=== PATIENT | male | born 1935 | race Caucasian/White ===

== ENCOUNTER → 2019-11-10 14:22 | Outpatient (CLI) | payer MEDICARE, SELFPAY ==
--- NOTE | 2019-11-10 | DI.RAD.S_ITS ---
PROCEDURE: XR CHEST 2V INDICATIONS: COUGH TECHNIQUE: 2 views of the chest were acquired. COMPARISON: [facility], , CHEST 2 VIEW, 11/23/2008, 15:49. FINDINGS: Surgical changes and devices: None. Lungs and pleura: Lungs are clear. No pleural effusions or pneumothorax. Mediastinum: The cardiac contours are within normal limits. The aorta demonstrates calcification and tortuosity. Bones and chest wall: Age-appropriate bony degenerative changes are seen. No suspicious bony abnormalities. Soft tissues appear unremarkable. IMPRESSION: Clear lungs, without infiltrates seen. If there is clinical concern for a developing pulmonary process, a short-term followup chest series (with PA and lateral views, performed in deep inspiration) is suggested for further evaluation. Dictated by: Kimo Cintron M.D. on 11/10/2019 at 13:50 Approved by: Kimo Cintron M.D. on 11/10/2019 at 13:50
== END ==
PROVIDERS: PCP Physician Assistant; Referring Provider Internal Medicine; Visit Provider Internal Medicine
DX: R05 Cough (principal)
CPT/HCPCS: 71046

== ENCOUNTER → 2020-04-06 14:18 | Outpatient (CLI) | payer MEDICARE, SELFPAY | PROVIDERS: PCP Physician Assistant; Visit Provider Specialist | DX: N39.0 Urinary tract infection, site not specified (principal); N36.42 Intrinsic sphincter deficiency (ISD); R31.9 Hematuria, unspecified; R32 Unspecified urinary incontinence; N52.35 Erectile dysfunction following radiation therapy; Z85.51 Personal history of malignant neoplasm of bladder; Z87.440 Personal history of urinary (tract) infections | CPT/HCPCS: 51798; 52000; 81002; 87077; 87086; 87186; 99213 ==

== ENCOUNTER → 2020-05-09 18:49 | Outpatient (ROUT) | payer MEDICARE, SELFPAY ==
[2020-05-09 20:17] LABS: BUN Creatinine Ratio 19.8 (6-22); Blood Urea Nitrogen 38 mg/dL (9-20); Calcium 10.2 mg/dL (8.4-10.2); Carbon Dioxide 28 mmol/L (22-32); Chloride 103 mmol/L (98-107); Estimated Glomerular Filt Rate 33.5 mL/min (>60); Glucose 87 mg/dL (80-110); HEMOLYSIS < 15 (0-50); Potassium 4.5 mmol/L (3.4-5.1); Sodium 139 mmol/L (137-145)
== END ==
PROVIDERS: PCP Physician Assistant; Visit Provider Internal Medicine
DX: N39.41 Urge incontinence (principal); N18.9 Chronic kidney disease, unspecified
CPT/HCPCS: 80048

== ENCOUNTER → 2020-05-11 18:41 | Outpatient (ROUT) | payer MEDICARE, SELFPAY | PROVIDERS: PCP Physician Assistant; Visit Provider Internal Medicine | DX: N39.41 Urge incontinence (principal) | CPT/HCPCS: 87077; 87086; 87186 ==

== ENCOUNTER → 2020-08-11 09:51 | Outpatient (CLI) | payer MEDICARE, SELFPAY ==
[2020-08-11 10:41] LABS: COVID19 -Nasal RAPID Negative (Negative)
== END ==
PROVIDERS: PCP Physician Assistant; Referring Provider Internal Medicine; Visit Provider Internal Medicine
DX: Z20.822 Contact with and (suspected) exposure to COVID-19 (principal)
CPT/HCPCS: 87635; C9803

== ENCOUNTER → 2020-10-12 11:08 | Outpatient (CLI) | payer MEDICARE, SELFPAY ==
--- NOTE | 2020-10-12 11:15 | DI.CT.S_ITS ---
PROCEDURE: CT CHEST W CON INDICATIONS: Hemoplysis, Cough TECHNIQUE: After the administration of intravenous contrast, 5 mm thick sections acquired from the pulmonary apices to the posterior costophrenic angles. 1 mm axial lung, 5 mm thick coronal and sagittal reformats and 7 mm axial MIP were acquired. For radiation dose reduction, the following was used: automated exposure control, adjustment of mA and/or kV according to patient size. COMPARISON: [facility], CR, CHEST 2VW, 08/04/2014, 10:38. [facility], CR, XR CHEST 2V, 11/10/2019, 13:33. FINDINGS: Image quality: Excellent. Lungs and pleura: No acute air space opacities. Lung volumes are large which may reflect a prior smoking history. Prior chest plain film has shown flattening of the diaphragms consistent with COPD. No endobronchial mass or evidence of early manifestation of lung carcinoma is found. A source of cough and hemoptysis is not seen. There is a small degree of lung parenchyma and adjacent pleural scarring at each apex, right greater than left. No pleural effusions or pneumothorax. Central and peripheral airways are patent and normal in caliber. Mediastinum: Heart size is normal. No pericardial effusion. No mediastinal or hilar adenopathy by size criteria. Thoracic aorta and central pulmonary arteries are normal in size. Esophagus is normal in caliber. No hiatal hernia. Bones and chest wall: No suspicious bony lesions. No vertebral body compression fractures. No axillary or supraclavicular adenopathy by size criteria. Thyroid gland is normal . Abdomen: Visualized upper abdominal solid organs appear normal. Upper abdominal bowel loops are normal in caliber. IMPRESSION: Suspect COPD, given large lung volumes and flattening of the diaphragms on the lateral view from chest plain films previously obtained. No pneumonia or neoplasm is found. Dictated by: Donald Mora M.D. on 10/12/2020 at 12:55 Approved by: Donald Mora M.D. on 10/12/2020 at 12:59
== END ==
PROVIDERS: PCP Physician Assistant; Referring Provider Physician Assistant; Visit Provider Physician Assistant
DX: R04.2 Hemoptysis (principal)
CPT/HCPCS: 71260

== ENCOUNTER → 2021-04-20 14:08 | Outpatient (CLI) | payer MEDICARE, SELFPAY | PROVIDERS: PCP Physician Assistant; Referring Provider Specialist; Visit Provider Specialist | DX: N52.35 Erectile dysfunction following radiation therapy (principal); N36.42 Intrinsic sphincter deficiency (ISD); R32 Unspecified urinary incontinence; N30.40 Irradiation cystitis without hematuria; Z85.51 Personal history of malignant neoplasm of bladder; Z87.440 Personal history of urinary (tract) infections | CPT/HCPCS: 51798; 52000; 81002; 87077; 87086; 87186; 99214 ==

== ENCOUNTER → 2021-06-13 16:16 | Outpatient (CLI) | payer MEDICARE, SELFPAY ==
[2021-06-13 17:07] LABS: Appearance Urine UA CLOUDY; Bilirubin Urine UA NEGATIVE (NEGATIVE); Color Urine UA YELLOW; Glucose Urine UA NEGATIVE (Negative); Ketones Urine UA NEGATIVE (NEGATIVE); Leukocyte Esterase Urine UA 2+ (NEGATIVE); Nitrite Urine UA NEGATIVE (Negative); Occult Blood Urine UA TRACE-LYSED (Negative); Protein Urine UA NEGATIVE (Negative); Specific Gravity Urine UA <=1.005 (1.000-1.035); Urobilinogen Urine UA 0.2 E.U./dL (0.2)
[2021-06-13 17:58] LABS: Bacteria Urine Many (>30); Culture Indicated Urine Cult Not Indicated; RBC Urine None Seen (0-5/HPF); Renal Epithelial Cells Urine 5-10/HPF (0-1/HPF); Squamous Epithelial Cell Urine 10-30 /HPF (0-5/HPF); Transitional Epi Cells Urine 1-5/HPF (0-5/HPF); WBC Urine 30-100/HPF (0-5/HPF)
== END ==
PROVIDERS: PCP Physician Assistant; Referring Provider Specialist; Visit Provider Specialist
DX: R30.0 Dysuria (principal)
CPT/HCPCS: 81001

== ENCOUNTER → 2021-06-21 16:23 | Outpatient (CLI) | payer MEDICARE, SELFPAY | PROVIDERS: PCP Physician Assistant; Visit Provider Specialist | DX: R30.0 Dysuria (principal); R32 Unspecified urinary incontinence | CPT/HCPCS: 51701; 87077; 87086; 87186 ==

== ENCOUNTER → 2021-09-04 16:42 | Outpatient (CLI) | payer MEDICARE, SELFPAY ==
[2021-09-04 17:21] LABS: COVID19 -Nasal RAPID Negative (Negative)
== END ==
PROVIDERS: PCP Physician Assistant; Visit Provider Nurse Practitioner Family
DX: Z20.822 Contact with and (suspected) exposure to COVID-19 (principal)
CPT/HCPCS: 87635

== ENCOUNTER → 2021-09-04 17:08 | Outpatient (CLI) | payer MEDICARE, SELFPAY ==
--- NOTE | 2021-09-04 17:15 | DI.RAD.S_ITS ---
PROCEDURE: XR CHEST 2V INDICATIONS: cough TECHNIQUE: 2 views of the chest were acquired. COMPARISON: [facility], CR, XR CHEST 2V, 11/10/2019, 13:33. FINDINGS: Surgical changes and devices: None. Lungs and pleura: Lungs are clear. No pleural effusions or pneumothorax. Lungs hyperinflated suggesting COPD. Mediastinum: Mediastinal contours are normal. Heart size is normal. Bones and chest wall: No suspicious bony abnormalities. Soft tissues appear unremarkable. IMPRESSION: No acute cardiopulmonary disease process. Dictated by: Nuzhat Day MD, PhD on 09/04/2021 at 17:26 Approved by: Nuzhat Day MD, PhD on 09/04/2021 at 17:26
== END ==
PROVIDERS: PCP Physician Assistant; Referring Provider Nurse Practitioner Family; Visit Provider Nurse Practitioner Family
DX: R05.9 Cough, unspecified (principal); Z20.822 Contact with and (suspected) exposure to COVID-19
CPT/HCPCS: 71046; 87635

== ENCOUNTER 2021-09-07 20:41 | Emergency (ER) | payer MEDICARE, SELFPAY ==
[2021-09-07] VITALS (10 sets, daily range): BP systolic 142–187; BP diastolic 60–79; PULSE 55–106; RESP 14; TEMP 37.4; O2SAT 97–100; BMI 20.5
--- NOTE | 2021-09-07 20:56 | DI.RAD.S_ITS ---
PROCEDURE: XR CHEST 1V INDICATIONS: cough and fever TECHNIQUE: One view of the chest was acquired. COMPARISON: [facility], CR, XR CHEST 2V, 09/04/2021, 17:09. FINDINGS: Surgical changes and devices: None. Lungs and pleura: Lungs are clear. No pleural effusions or pneumothorax. Mediastinum: Mediastinal contours appear normal. Heart size is normal. Bones and chest wall: No suspicious bony lesions. Overlying soft tissues appear unremarkable. IMPRESSION: No acute process. Dictated by: Artur Serrano M.D. on 09/07/2021 at 21:16 Approved by: Artur Serrano M.D. on 09/07/2021 at 21:16
--- NOTE | 2021-09-07 21:07 | ED_ITS ---
HPI - General Adult General Chief complaint: Weakness Stated complaint: fever, feels weak Time Seen by Provider: 09/07/21 20:44 Source: patient Mode of arrival: Wheelchair Limitations: no limitations History of Present Illness HPI narrative: Patient is an 86-year-old male. Was here for evaluation of feeling weak and fatigued and a fever earlier in the day. He states that he took his temperature at home and it was 100 he did not take anything for it did not have a fever here upon arrival. He was recently seen in the walk-in clinic for fatigue. He states that several weeks ago he had a couple days where he slept greater than 18 hours each day. He also has a cough but this has been going on for approximately a year. He has urinary incontinence but this is been going on since he had prostate surgery more than 5 years ago. He has a rash on his feet but states this is not new. He has no abdominal pain. He is having some lower back and left hip pain but this is been going on the past several weeks. Related Data Home Medications Medication Instructions Recorded Confirmed aspirin 81 mg tablet,delayed 81 mg PO DAILY 04/01/20 07/20/21 release (Adult Aspirin Regimen) atorvastatin 40 mg tablet 40 mg PO DAILY 04/01/20 07/20/21 ascorbic acid (vitamin C) 1,000 mg 500 mg PO DAILY 04/06/20 07/20/21 tablet amlodipine PO DAILY 09/04/21 09/04/21 metoprolol 0.5 tab PO BID 09/04/21 09/04/21 Previous Rx's Medication Instructions Recorded sulfamethoxazole 800 1 tab PO BID 3 Days #5 tab 09/07/21 mg-trimethoprim 160 mg tablet (Bactrim DS) Allergies Allergy/AdvReac Type Severity Reaction Status Date / Time No Known Drug Allergies Allergy Verified 09/07/21 20:56 Review of Systems Review of Systems ROS Unobtainable: All systems reviewed & are unremarkable except as noted in HPI and below Constitutional Constitutional: Reports system reviewed and no additional complaints, except as documented ENT Ears, Nose, Mouth, and Throat: Denies sore throat Cardiovascular Cardiovascular: Denies chest pain Respiratory Respiratory: Reports as per HPI and Reports system reviewed and no additional complaints, except as documented Gastrointestinal Gastrointestinal: Reports as per HPI and Reports system reviewed and no addition al complaints, except as documented Genitourinary Genitourinary: Reports system reviewed and no additional complaints, except as documented and Reports as per HPI Musculoskeletal Musculoskeletal: Reports system reviewed and no additional complaints, except as documented and Reports as per HPI Integumentary/Breasts Skin/Breast: Reports system reviewed and no additional complaints, except as documented and Reports as per HPI Neurologic Neurologic: Reports system reviewed and no additional complaints, except as documented Hematologic/Lymphatic On Anticoagulants: No Patient History Medical History Anemia Bladder cancer Coronary stent patent Depression Erectile dysfunction 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 Family history of prostate cancer High blood pressure History of malignant neoplasm of prostate History of primary bladder cancer History of UTI Membranous urethral stricture Prostate cancer Prostate cancer Radiation cystitis Urinary incontinence Urinary incontinence due to urethral sphincter incompetence UTI (urinary tract infection) Surgical History H/O cystoscopy History of coronary artery stent placement Social History Smoking Status: Current some day smoker Smoking Status: Current some day smoker alcohol intake frequency: holidays/special occasions only Substance Use Type: does not use Exam Initial Vital Signs Initial Vital Signs: Vital Signs Temperature 99.3 F 09/07/21 20:50 Pulse Rate 70 09/07/21 20:50 Respiratory Rate 14 09/07/21 20:50 Blood Pressure 187/70 H 09/07/21 20:50 Pulse Oximetry 100 09/07/21 20:50 Const General: cooperative, healthy appearing and comfortable HENTN Head: normal to inspection and normocephalic Resp Effort & Inspection: normal respiratory effort Auscultation: clear to auscultation bilaterally Cardio Rate: regular rate Rhythm: regular rhythm GI Inspection: normal to inspection Palpation: soft and No tender Back/Spine/Pelvis Other: Tenderness to palpation along the left sacroiliac joint. Skin Other: No specific rash noted on his lower extremities. However does have bruising a long the lateral malleolus of the left ankle. Neuro General: patient alert, patient awake, patient oriented x3 and moves all extremities Speech: speech normal Extrem General: normal to inspection and capillary refill normal Other: No tenderness to palpation along the lateral malleolus Psych Appearance: grossly normal and well kempt Course Orders Ordered: ED Orders 09/07/21 20:50 Complete Blood Count AUTO DIFF Stat Comprehensive Metabolic Panel Stat Lactate (Lactic Acid) Stat Lipase Stat 09/07/21 20:56 XR chest 1V Stat 09/07/21 22:05 Urinalysis and Microscopic Stat Urine Culture Stat 09/07/21 22:40 Blood Culture Stat Discontinued Medications Trimethoprim/Sulfamethoxazole (Trimeth/Sulfa 160/800 (Ds) Tablet) 1 tab PO NOW ONE Stop: 09/07/21 22:53 Last Admin: 09/07/21 23:13 Dose: 1 tab Documented by: DON Vital Signs Vital signs: Vital Signs - 8 hr 09/07/21 20:50 09/07/21 20:51 09/07/21 21:00 Temperature 99.3 F Pulse Rate 70 67 64 Respiratory Rate 14 Blood Pressure 187/70 H 187/70 H Pulse Oximetry 100 100 98 09/07/21 21:30 09/07/21 22:00 09/07/21 22:10 Temperature Pulse Rate 58 L 67 106 H Respiratory Rate Blood Pressure 142/60 H Pulse Oximetry 97 99 99 09/07/21 22:30 09/07/21 22:49 09/07/21 23:00 Temperature Pulse Rate 55 L 60 57 L Respiratory Rate Blood Pressure 167/73 H Pulse Oximetry 98 99 99 09/07/21 23:01 Temperature Pulse Rate 57 L Respiratory Rate Blood Pressure 158/79 H Pulse Oximetry 98 Medical Decision Making Medical Records Medical records reviewed: Yes I reviewed the patient's medical records. Lab Data Lab results reviewed: Yes I reviewed the patient's lab results. Result diagrams: 09/07/21 20:50 09/07/21 20:50 Labs: Lab Results 09/07/21 09/07/21 09/07/21 Range/Units 20:50 20:50 20:50 WBC 8.5 (4.5-11.0) X10^3/uL RBC 3.18 L (4.5-5.9) X10^6/uL Hgb 10.4 L (13.5-17.5) g/dL Hct 31.3 L (41-53) % MCV 98.6 (80-100) fL MCH 32.6 (26-34) PG MCHC 33.1 (30-36) % RDW 15.3 H (11.6-14.8) % Plt Count 172 (150-400) X10^3/uL Neut % (Auto) 79.7 H (50-75) % Lymph % (Auto) 10.4 L (25-40) % [place] % (Auto) 8.5 (3-14) % Eos % (Auto) 0.4 L (2-4) % Baso % (Auto) 1.0 (0-2) % Neut # (Auto) 6700 (1804-9521) /uL Lymph # (Auto) 900 L (1345-1328) /uL [place] # (Auto) 700 (0-900) /uL Eos # (Auto) 0 (0-450) /uL Baso # (Auto) 100 (0-100) /uL Sodium 134 L (137-145) mmol/L Potassium 4.4 (3.4-5.1) mmol/L Chloride 104 (98-107) mmol/L Carbon Dioxide 23 (22-32) mmol/L BUN 38 H (9-20) mg/dL Creatinine 2.51 H (0.66-1.25) mg/dL Estimated GFR 24.5 L (>60) mL/min BUN/Creatinine Ratio 15.1 (6-22) Glucose 130 H (80-110) mg/dL Lactate 1.9 (0.7-2.1) mmol/L Calcium 10.3 H (8.4-10.2) mg/dL Total Bilirubin 0.9 (0.2-1.3) mg/dL AST 29 (17-59) IU/L ALT 16 (<50) IU/L Alkaline Phosphatase 63 (38-126) U/L Total Protein 8.2 (6.3-8.2) g/dL Albumin 4.3 (3.5-5.0) g/dL Globulin 3.9 (1.7-4.1) g/dL Albumin/Globulin Ratio 1.1 (1.0-2.8) Lipase (23-300) U/L Urine Color Urine Appearance Urine pH (4.5-8.0) Ur Specific [place] (1.000-1.035) Urine Protein (Negative) Urine Glucose (UA) (Negative) g/dL Urine Ketones (NEGATIVE) Urine Occult Blood (Negative) Urine Nitrate (Negative) Urine Bilirubin (NEGATIVE) Urine Urobilinogen (0.2) E.U./dL Ur Leukocyte Esterase (NEGATIVE) Urine RBC (0-5/HPF) Urine WBC (0-5/HPF) Ur Squamous Epith Cells (0-5/HPF) Urine Bacteria (None) Ur Culture Indicated? 09/07/21 09/07/21 Range/Units 20:50 22:05 WBC (4.5-11.0) X10^3/uL RBC (4.5-5.9) X10^6/uL Hgb (13.5-17.5) g/dL Hct (41-53) % MCV (80-100) fL MCH (26-34) PG MCHC (30-36) % RDW (11.6-14.8) % Plt Count (150-400) X10^3/uL Neut % (Auto) (50-75) % Lymph % (Auto) (25-40) % [place] % (Auto) (3-14) % Eos % (Auto) (2-4) % Baso % (Auto) (0-2) % Neut # (Auto) (0198-0041) /uL Lymph # (Auto) (7684-3896) /uL [place] # (Auto) (0-900) /uL Eos # (Auto) (0-450) /uL Baso # (Auto) (0-100) /uL Sodium (137-145) mmol/L Potassium (3.4-5.1) mmol/L Chloride (98-107) mmol/L Carbon Dioxide (22-32) mmol/L BUN (9-20) mg/dL Creatinine (0.66-1.25) mg/dL Estimated GFR (>60) mL/min BUN/Creatinine Ratio (6-22) Glucose (80-110) mg/dL Lactate (0.7-2.1) mmol/L Calcium (8.4-10.2) mg/dL Total Bilirubin (0.2-1.3) mg/dL AST (17-59) IU/L ALT (<50) IU/L Alkaline Phosphatase (38-126) U/L Total Protein (6.3-8.2) g/dL Albumin (3.5-5.0) g/dL Globulin (1.7-4.1) g/dL Albumin/Globulin Ratio (1.0-2.8) Lipase 150 (23-300) U/L Urine Color Yellow Urine Appearance Cloudy Urine pH 5.0 (4.5-8.0) Ur Specific [place] 1.020 (1.000-1.035) Urine Protein 2+ H (Negative) Urine Glucose (UA) Negative (Negative) g/dL Urine Ketones Negative (NEGATIVE) Urine Occult Blood 2+ H (Negative) Urine Nitrate Negative (Negative) Urine Bilirubin Negative (NEGATIVE) Urine Urobilinogen 0.2 (0.2) E.U./dL Ur Leukocyte Esterase 3+ H (NEGATIVE) Urine RBC 0-1/hpf (0-5/HPF) Urine WBC 30-100/hpf H (0-5/HPF) Ur Squamous Epith Cells 1-5 /hpf D (0-5/HPF) Urine Bacteria Many (>30) H (None) Ur Culture Indicated? Specimen cultured Imaging Data Chest x-ray: Radiologist's Impression: [address] [address] XRay Report Signed Patient: Justin Sheridan MR#: [id number] : 1935 Acct:[id number] Age/Sex: 86 / M Date of Service: 09/07/21 Loc: ED Accession Number: [id number] ?? Procedure: XR chest 1V Ordering Provider: Adrian Anderson D.O. PROCEDURE:? XR CHEST 1V ? INDICATIONS:? cough and fever ? TECHNIQUE:? One view of the chest was acquired.? ? COMPARISON:? [facility], , XR CHEST 2V, 09/04/2021, 17:09. ? FINDINGS:? ? Surgical changes and devices:? None.? ? Lungs and pleura:? Lungs are clear.? No pleural effusions or pneumothorax.? ? Mediastinum:? Mediastinal contours appear normal.? Heart size is normal.? ? Bones and chest wall:? No suspicious bony lesions.? Overlying soft tissues appear unremarkable.? ? IMPRESSION:? No acute process. ? ? Dictated by: Artur Serrano M.D. on 09/07/2021 at 21:16 ? ? Approved by: Artur Serrano M.D. on 09/07/2021 at 21:16?? MDM Narrative Medical decision making narrative: Chest x-ray is unremarkable. No leukocytosis. Normal lactate. Urinalysis does have findings concerning for urinary tract infection. Review of his prior medical record shows that he has had a pansensitive E coli in the past. Was given her 1st dose here in the emergency department and will send a prescription to the pharmacy of his choice for the remainder. No indication for admission to the hospital based on his exam today. Patient was given return precautions and follow-up instructions. He expressed understanding agreement. Discharge Plan Departure Patient Disposition: Home Clinical Impression: Urinary tract infection Instructions: DI for Urinary Tract Infection (UTI) Activity Restrictions/Additional Instructions: A prescription for antibiotics was electronically transmitted to [facility] in [place]. Please start taking them tomorrow morning as directed. Contact your primary doctor for a follow-up. A urine culture was pending at the time of your discharge and we will contact you if we need to switch antibiotics. Return to the emergency department for any new or worsening symptoms. Prescriptions: New sulfamethoxazole-trimethoprim [Bactrim DS] 800-160 mg tablet 1 tab PO BID 3 Days Qty: 5 0RF No Action metoprolol 25 mg 0.5 tab PO BID 0RF amlodipine 2.5 mg PO DAILY 0RF atorvastatin 40 mg tablet 40 mg PO DAILY 0RF aspirin [Adult Aspirin Regimen] 81 mg tablet,delayed release (DR/EC) 81 mg PO DAILY 0RF ascorbic acid (vitamin C) 1,000 mg tablet 500 mg PO DAILY 0RF Referrals: Jody Ferrara PA-C [Primary Care Provider] -
[2021-09-07 21:20] LABS: Add Manual Diff / Slide Review NO; Basophils Absolute Auto 100 /uL (0-100); Eosinophils Absolute Auto 0 /uL (0-450); Eosinophils Percent Auto 0.4 % (2-4); Hematocrit 31.3 % (41-53); Hemoglobin 10.4 g/dL (13.5-17.5); Lymphocytes Absolute Auto 900 /uL (1100-4500); Lymphocytes Percent Auto 10.4 % (25-40); Mean Corpuscular HGB Conc 33.1 % (30-36); Mean Corpuscular Hemoglobin 32.6 PG (26-34); Mean Corpuscular Volume 98.6 fL (80-100); Monocytes Absolute Auto 700 /uL (0-900); Monocytes Percent Auto 8.5 % (3-14); Neutrophils Absolute Auto 6700 /uL (1500-7000); Neutrophils Percent Auto 79.7 % (50-75); Platelet Count 172 X10^3/uL (150-400); Red Blood Cell Count 3.18 X10^6/uL (4.5-5.9); Red Cell Distribution Width 15.3 % (11.6-14.8); White Blood Cell Count 8.5 X10^3/uL (4.5-11.0)
[2021-09-07 21:26] LABS: Alanine Aminotransferase 16 IU/L (<50); Albumin 4.3 g/dL (3.5-5.0); Albumin Globulin Ratio 1.1 (1.0-2.8); Alkaline Phosphatase 63 U/L (38-126); Aspartate Aminotransferase 29 IU/L (17-59); BUN Creatinine Ratio 15.1 (6-22); Bilirubin Total 0.9 mg/dL (0.2-1.3); Blood Urea Nitrogen 38 mg/dL (9-20); Calcium 10.3 mg/dL (8.4-10.2); Carbon Dioxide 23 mmol/L (22-32); Chloride 104 mmol/L (98-107); Estimated Glomerular Filt Rate 24.5 mL/min (>60); Globulin 3.9 g/dL (1.7-4.1); Glucose 130 mg/dL (80-110); HEMOLYSIS < 15 (0-50); Lipase 150 U/L (23-300); Potassium 4.4 mmol/L (3.4-5.1); Sodium 134 mmol/L (137-145); Total Protein 8.2 g/dL (6.3-8.2)
[2021-09-07 21:27] LABS: Lactate (Lactic Acid) 1.9 mmol/L (0.7-2.1)
[2021-09-07 22:18] LABS: Appearance Urine UA CLOUDY; Bilirubin Urine UA NEGATIVE (NEGATIVE); Color Urine UA YELLOW; Glucose Urine UA NEGATIVE (Negative); Ketones Urine UA NEGATIVE (NEGATIVE); Leukocyte Esterase Urine UA 3+ (NEGATIVE); Nitrite Urine UA NEGATIVE (Negative); Occult Blood Urine UA 2+ (Negative); Protein Urine UA 2+ (Negative); Urobilinogen Urine UA 0.2 E.U./dL (0.2)
[2021-09-07 22:27] LABS: Bacteria Urine Many (>30); Culture Indicated Urine Specimen Cultured; RBC Urine 0-1/HPF (0-5/HPF); Squamous Epithelial Cell Urine 1-5 /HPF (0-5/HPF); WBC Urine 30-100/HPF (0-5/HPF)
[2021-09-07] MEDS: TRIMETH/SULFA 160/800 (DS) TABLET 1 TAB PO (23:13)
== END 2021-09-07 23:27 | disposition home or self-care (01) ==
PROVIDERS: Emergency Provider Emergency Medicine; PCP Physician Assistant
DX: N39.0 Urinary tract infection, site not specified (principal); R05.9 Cough, unspecified
CPT/HCPCS: 36415; 71045; 80053; 81001; 83605; 83690; 85025; 87040; 87077; 87086; 87186; 99283; 99284

== ENCOUNTER 2021-12-14 15:22 | Emergency (ER) | payer MEDICARE, SELFPAY ==
[2021-12-14] VITALS (12 sets, daily range): BP systolic 125–218; BP diastolic 57–102; PULSE 49–71; RESP 15–39; TEMP 36.2; O2SAT 98–100
--- NOTE | 2021-12-14 15:39 | DI.RAD.S_ITS ---
PROCEDURE: XR CHEST 1V INDICATIONS: chest pain TECHNIQUE: One view of the chest was acquired. COMPARISON: [facility], CR, XR CHEST 1V, 09/07/2021, 21:00. FINDINGS: Surgical changes and devices: None. Lungs and pleura: Mild bronchial wall thickening in bilateral hilar region are seen. No focal infiltrate.. No pleural effusions or pneumothorax. Mediastinum: Mediastinal contours appear normal. Heart size is normal. Bones and chest wall: No suspicious bony lesions. Overlying soft tissues appear unremarkable. IMPRESSION: Finding is suggestive of mild reactive airway disease such as bronchitis or asthma. No focal infiltrate, pleural effusion or pneumothorax. Dictated by: Basim Mendez M.D. on 12/14/2021 at 16:16 Approved by: Basim Mendez M.D. on 12/14/2021 at 16:17
[2021-12-14 15:57] LABS: Add Manual Diff / Slide Review NO; Basophils Absolute Auto 0 /uL (0-100); Basophils Percent Auto 0.6 % (0-2); Eosinophils Absolute Auto 100 /uL (0-450); Eosinophils Percent Auto 1.8 % (2-4); Hematocrit 26.4 % (41-53); Hemoglobin 8.9 g/dL (13.5-17.5); Lymphocytes Absolute Auto 800 /uL (1100-4500); Lymphocytes Percent Auto 15.9 % (25-40); Mean Corpuscular HGB Conc 33.8 % (30-36); Mean Corpuscular Hemoglobin 33.8 PG (26-34); Mean Corpuscular Volume 99.9 fL (80-100); Monocytes Absolute Auto 600 /uL (0-900); Monocytes Percent Auto 11.2 % (3-14); Neutrophils Absolute Auto 3800 /uL (1500-7000); Neutrophils Percent Auto 70.5 % (50-75); Platelet Count 176 X10^3/uL (150-400); Red Blood Cell Count 2.64 X10^6/uL (4.5-5.9); Red Cell Distribution Width 15.6 % (11.6-14.8); White Blood Cell Count 5.3 X10^3/uL (4.5-11.0)
[2021-12-14 16:09] LABS: Alanine Aminotransferase 15 IU/L (<50); Albumin 4.3 g/dL (3.5-5.0); Albumin Globulin Ratio 1.1 (1.0-2.8); Alkaline Phosphatase 72 U/L (38-126); Aspartate Aminotransferase 28 IU/L (17-59); BUN Creatinine Ratio 13.2 (6-22); Bilirubin Total 0.5 mg/dL (0.2-1.3); Blood Urea Nitrogen 40 mg/dL (9-20); Calcium 10.1 mg/dL (8.4-10.2); Carbon Dioxide 20 mmol/L (22-32); Chloride 104 mmol/L (98-107); Creatine Kinase 61 U/L (55-170); Estimated Glomerular Filt Rate 19 mL/min (>60); Globulin 3.8 g/dL (1.7-4.1); Glucose 101 mg/dL (80-110); HEMOLYSIS < 15 (0-50); Lipase 203 U/L (23-300); Potassium 4.7 mmol/L (3.4-5.1); Sodium 134 mmol/L (137-145); Total Protein 8.1 g/dL (6.3-8.2)
[2021-12-14 16:20] LABS: Troponin I < 0.012 ng/mL (0.01-0.034)
--- NOTE | 2021-12-14 17:28 | ED.BACK ---
HPI - Back Pain/Injury <Pastora Garner, DO - Last Filed: 12/15/21 07:33> General Chief Complaint: Dizziness Stated Complaint: states high and low blood pressure Time Seen by Provider: 12/14/21 15:46 Source: patient History of Present Illness HPI Narrative: Patient is an 86-year-old male who presents with a variety of complaints. He has been monitoring his blood pressure over the last 1 week. Most of it he has a systolic in the 120s he had 1 reading with a systolic in the 190s and 1 in the 96 range. He says that he is having significant left lumbar pain is definitely worse when he walks. He notices it mostly when he goes to the grocery store and gets a supine I will the pain become so intense he gets dizzy and lightheaded. It seems to be radiating up his back to his head. He really does not have any chest pain palpitations or shortness of breath. He has not taken anything for pain. He has not had any falls. He went to his primary care office today who was concerned and sent him here to the ED for further evaluation. His initial blood pressure was 125/57 and now he has a systolic greater than 200. He seems to be asymptomatic he is not complaining of significant pain in his left lumbar area. Pain does not radiate down to his leg. He does have a history of prostate cancer he always has some urinary incontinence it does not seem to be any worse today. 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 He states his stools have been black he has a history of anemia. Related Data Home Medications Medication Instructions Recorded Confirmed aspirin 81 mg tablet,delayed 81 mg PO DAILY 04/01/20 07/20/21 release (Adult Aspirin Regimen) atorvastatin 40 mg tablet 40 mg PO DAILY 04/01/20 07/20/21 ascorbic acid (vitamin C) 1,000 mg 500 mg PO DAILY 04/06/20 07/20/21 tablet amlodipine PO DAILY 09/04/21 09/04/21 metoprolol 0.5 tab PO BID 09/04/21 09/04/21 Allergies Allergy/AdvReac Type Severity Reaction Status Date / Time No Known Drug Allergies Allergy Verified 12/14/21 15:25 Review of Systems <Pastora Garner DO - Last Filed: 12/15/21 07:33> Review of Systems Narrative: GENERAL: Denies chills, fatigue, malaise, fever, sweats, travel HEENT: Denies sinus pain, ear pain, sore throat, difficulty swallowing, neck pain RESPIRATORY: Denies dyspnea, cough, wheezing, hemoptysis, sputum. CARDIOVASCULAR: Denies chest pain, palpitations, orthopnea, edema GASTROINTESTINAL: Denies nausea, vomiting, abdominal pain, diarrhea, constipation, melena. : Denies dysuria, frequency, incontinence, hematuria, urinary retention, flank pain. MUSCULOSKELETAL: See HPI SKIN: No rash, no erythema, no pruritus NEUROLOGIC: Denies weakness, dizziness, headache, numbness, change in speech, confusion PSYCHIATRIC: No concerning psychosocial issues. 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 Family history of prostate cancer High blood pressure History of malignant neoplasm of prostate History of primary bladder cancer History of UTI Membranous urethral stricture Prostate cancer Prostate cancer Radiation cystitis Urinary incontinence Urinary incontinence due to urethral sphincter incompetence UTI (urinary tract infection) Surgical History H/O cystoscopy History of coronary artery stent placement Social History Smoking Status: Current every day smoker Smoking Status: Current every day smoker alcohol intake frequency: holidays/special occasions only Substance Use Type: does not use Exam <Pastora Garner DO - Last Filed: 12/15/21 07:33> Initial Vital Signs Initial Vital Signs: Vital Signs Temperature 97.1 F L 12/14/21 15:25 Pulse Rate 49 L 12/14/21 15:25 Respiratory Rate 18 12/14/21 15:25 Blood Pressure 125/57 L 12/14/21 15:25 Pulse Oximetry 100 12/14/21 15:25 Oxygen Delivery Method 12/14/21 15:25 GENERAL: Alert well-appearing 86-year-old male tall and thin standing in room without pain or difficulty and in no acute distress. HEENT: Head atraumatic,EOMI, pupils reactive, face symmetric, moist mucous membranes CARDIOVASCULAR: Regular rate and rhythm without murmurs, rubs or gallops. RESPIRATORY: Breath sounds equal bilaterally, no wheezes rales or rhonchi. ABDOMEN: Soft, nontender. Normoactive bowel sounds all 4 quadrants. No guarding or rebound. RECTAL: No stool in rectum BACK: Tenderness no step-off he is tender left lower lumbar area but not mid EXTREMITIES: Normal range of motion, no clubbing or edema. Neurovascularly intact NEUROLOGICAL: Alert and oriented x4.Normal gait and speech. Cranial nerves II through XII grossly intact. Good [id number], good [id number], strength equal bilaterally, no dysarthria or aphasia, sensation in tact to soft touch bilaterally, no visual changes, no facial droop SKIN: Warm, dry, no laceration, no petechiae, no rashes or lesions. <Omega Lyon MD - Last Filed: 12/15/21 01:54> Initial Vital Signs Initial Vital Signs: Vital Signs Temperature 97.1 F L 12/14/21 15:25 Pulse Rate 49 L 12/14/21 15:25 Respiratory Rate 18 12/14/21 15:25 Blood Pressure 125/57 L 12/14/21 15:25 Pulse Oximetry 100 12/14/21 15:25 Oxygen Delivery Method 12/14/21 15:25 Scores <Pastora Garner DO - Last Filed: 12/15/21 07:33> NIH Stroke Scale Level of Conciousness: Alert, keenly responsive Ask month/age: Answers both questions correctly. Open/close eyes, close hand: Performs both tasks correctly Best gaze horizontal: Normal Visual murray: No visual loss Facial palsy: Normal symetrical movement Left arm drift: No drift for full 10 sec Right arm drift: No drift for full 10 sec Left leg drift: No drift for full 5 sec Right leg drift: No drift for full 5 sec Limb ataxia: Absent Sensory on face/arms/legs: Normal, no sensory loss Best language: No aphasia, normal Dysarthria: Normal Extinction or inattention: No abnormality Total NIH Stroke scale score: 0 Course <DO Shiraz Stroud Last Filed: 12/15/21 07:33> Orders Ordered: Discontinued Medications Acetaminophen (Acetaminophen 325 Mg Tablet) 975 mg PO NOW ONE Stop: 12/14/21 17:31 Last Admin: 12/14/21 17:59 Dose: Not Given Documented By: AT Vital Signs Vital signs: Vital Signs - 8 hr 12/14/21 18:00 12/14/21 18:01 12/14/21 18:01 Pulse Rate 60 59 L Respiratory Rate 15 18 Blood Pressure 209/90 H Pulse Oximetry 100 100 Oxygen Delivery Method 12/14/21 18:30 12/14/21 18:31 12/14/21 18:31 Pulse Rate 64 65 Respiratory Rate 25 H 24 Blood Pressure 195/86 H Pulse Oximetry 100 99 Oxygen Delivery Method Room Air <Omega Lyon MD - Last Filed: 12/15/21 01:54> Course Course Narrative: Please note, patient was not signed out to me, it was signed out in error by dr hubert Lyon MD Orders Ordered: Discontinued Medications Acetaminophen (Acetaminophen 325 Mg Tablet) 975 mg PO NOW ONE Stop: 12/14/21 17:31 Last Admin: 12/14/21 17:59 Dose: Not Given Documented By: AT Vital Signs Vital signs: Vital Signs - 8 hr 12/14/21 18:00 12/14/21 18:01 12/14/21 18:01 Pulse Rate 60 59 L Respiratory Rate 15 18 Blood Pressure 209/90 H Pulse Oximetry 100 100 Oxygen Delivery Method 12/14/21 18:30 12/14/21 18:31 12/14/21 18:31 Pulse Rate 64 65 Respiratory Rate 25 H 24 Blood Pressure 195/86 H Pulse Oximetry 100 99 Oxygen Delivery Method Room Air MDM - Back Pain/Injury <Pastora Garner DO - Last Filed: 12/15/21 07:33> Lab Data Result diagrams: 12/14/21 15:40 12/14/21 15:40 Labs: Lab Results 12/14/21 12/14/21 Range/Units 15:40 15:40 WBC 5.3 (4.5-11.0) X10^3/uL RBC 2.64 L (4.5-5.9) X10^6/uL Hgb 8.9 L (13.5-17.5) g/dL Hct 26.4 L (41-53) % MCV 99.9 (80-100) fL MCH 33.8 (26-34) PG MCHC 33.8 (30-36) % RDW 15.6 H (11.6-14.8) % Plt Count 176 (150-400) X10^3/uL Neut % (Auto) 70.5 (50-75) % Lymph % (Auto) 15.9 L (25-40) % Ware % (Auto) 11.2 (3-14) % Eos % (Auto) 1.8 L (2-4) % Baso % (Auto) 0.6 (0-2) % Neut # (Auto) 3800 (1495-6479) /uL Lymph # (Auto) 800 L (1951-8016) /uL Ware # (Auto) 600 (0-900) /uL Eos # (Auto) 100 (0-450) /uL Baso # (Auto) 0 (0-100) /uL Sodium 134 L (137-145) mmol/L Potassium 4.7 (3.4-5.1) mmol/L Chloride 104 (98-107) mmol/L Carbon Dioxide 20 L (22-32) mmol/L BUN 40 H (9-20) mg/dL Creatinine 3.03 H (0.66-1.25) mg/dL Estimated GFR 19 L (>60) mL/min BUN/Creatinine Ratio 13.2 (6-22) Glucose 101 (80-110) mg/dL Calcium 10.1 (8.4-10.2) mg/dL Magnesium 2.0 (1.6-2.3) mg/dL Total Bilirubin 0.5 (0.2-1.3) mg/dL AST 28 (17-59) IU/L ALT 15 (<50) IU/L Alkaline Phosphatase 72 (38-126) U/L Total Creatine Kinase 61 (55-170) U/L CK-MB (CK-2) TNP CK-MB (CK-2) Rel Index TNP Troponin I < 0.012 (0.01-0.034) ng/mL Total Protein 8.1 (6.3-8.2) g/dL Albumin 4.3 (3.5-5.0) g/dL Globulin 3.8 (1.7-4.1) g/dL Albumin/Globulin Ratio 1.1 (1.0-2.8) Lipase 203 (23-300) U/L Imaging Data Chest x-ray: Radiologist's Impression: TONY Knapp [id number] XRay Report Signed Patient: Justin Sheridan MR#: [id number] : 1935 Acct:[id number] Age/Sex: 86 / M Date of Service: 12/14/21 Loc: ED Accession Number: [id number] ?? Procedure: XR chest 1V Ordering Provider: Pastora Garner D.O. PROCEDURE:? XR CHEST 1V ? INDICATIONS:? chest pain ? TECHNIQUE:? One view of the chest was acquired.? ? COMPARISON:? Merged With [facility], , XR CHEST 1V, 09/07/2021, 21:00. ? FINDINGS:? ? Surgical changes and devices:? None.? ? Lungs and pleura:? Mild bronchial wall thickening in bilateral hilar region are seen.? No focal infiltrate..? No pleural effusions or pneumothorax.? ? Mediastinum:? Mediastinal contours appear normal.? Heart size is normal.? ? Bones and chest wall:? No suspicious bony lesions.? Overlying soft tissues appear unremarkable.? ? IMPRESSION:? Finding is suggestive of mild reactive airway disease such as bronchitis or asthma.? No focal infiltrate, pleural effusion or pneumothorax. ? ? Dictated by: Basim Mendez M.D. on 12/14/2021 at 16:16 xr lumbar: Radiologist's Impression: Signed Patient: Justin Sheridan MR#: [id number] : 1935 Acct:[id number] Age/Sex: 86 / M Date of Service: 12/14/21 Loc: ED Accession Number: [id number] ?? Procedure: XR lumbar spine 2-3V Ordering Provider: Pastora Garner D.O. PROCEDURE:? XR LUMBAR SPINE 2-3V ? INDICATIONS:? pain left side ? TECHNIQUE:? 3 views of the lumbar spine were acquired.? ? COMPARISON:? None. ? FINDINGS:? ? Bones:? Five [id number] vertebrae are present.? Mild rightward curvature.? Trace anterolisthesis L3 on four.? Mildly decreased disc spacing overall.? No vertebral body compression fractures.? No suspicious bony lesions.? ? Soft tissues:? Several air-filled mildly prominent bowel loops.? No suspicious soft tissue calcifications.? Brachytherapy seeds in the prostate gland. ? ? IMPRESSION:? ? 1. Minor rightward lumbar curvature and trace anterolisthesis L3-4. ? 2. Gas-filled bowel loops.? ? ? Dictated by: Edyta Vargas M.D. on 12/14/2021 at 18:13 ? ECG Data Interpretation: Normal sinus rhythm rate 52 MS interval 216 QRS [address] changes no T-wave inversion MDM Narrative Medical decision making narrative: Patient's blood pressure remains quite elevated. He is given Tylenol for pain he appears comfortable. He does have increase in his creatinine from 2.5 to a 3. He is known chronic kidney disease he says he only has 1 working kidney. His troponin is negative. He is also noted to be anemic hemoglobin 8.9, hematocrit 26.4. In September of 2021 he was 10.4 and 31.3 respectively. No signs of active bleeding hemodynamically stable no need for blood transfusion. He is on iron tablets are ready. He is guaiac negative. He will need repeat blood work. Mild anemia may be causing some of his dizziness. Head CT is negative no focal deficits. NIH stroke scale 0. He is actually hypertensive rather than hypotensive. He is very good at monitoring his blood pressures. At home they are normal today they are elevated in the emergency department. Recommend he continue following them and monitoring at Blood pressures variable here in the emergency department but definitely on the high side. <Omega Lyon MD - Last Filed: 12/15/21 01:54> Lab Data Labs: Lab Results 12/14/21 12/14/21 Range/Units 15:40 15:40 WBC 5.3 (4.5-11.0) X10^3/uL RBC 2.64 L (4.5-5.9) X10^6/uL Hgb 8.9 L (13.5-17.5) g/dL Hct 26.4 L (41-53) % MCV 99.9 (80-100) fL MCH 33.8 (26-34) PG MCHC 33.8 (30-36) % RDW 15.6 H (11.6-14.8) % Plt Count 176 (150-400) X10^3/uL Neut % (Auto) 70.5 (50-75) % Lymph % (Auto) 15.9 L (25-40) % Ware % (Auto) 11.2 (3-14) % Eos % (Auto) 1.8 L (2-4) % Baso % (Auto) 0.6 (0-2) % Neut # (Auto) 3800 (9736-4502) /uL Lymph # (Auto) 800 L (5883-6999) /uL Ware # (Auto) 600 (0-900) /uL Eos # (Auto) 100 (0-450) /uL Baso # (Auto) 0 (0-100) /uL Sodium 134 L (137-145) mmol/L Potassium 4.7 (3.4-5.1) mmol/L Chloride 104 (98-107) mmol/L Carbon Dioxide 20 L (22-32) mmol/L BUN 40 H (9-20) mg/dL Creatinine 3.03 H (0.66-1.25) mg/dL Estimated GFR 19 L (>60) mL/min BUN/Creatinine Ratio 13.2 (6-22) Glucose 101 (80-110) mg/dL Calcium 10.1 (8.4-10.2) mg/dL Magnesium 2.0 (1.6-2.3) mg/dL Total Bilirubin 0.5 (0.2-1.3) mg/dL AST 28 (17-59) IU/L ALT 15 (<50) IU/L Alkaline Phosphatase 72 (38-126) U/L Total Creatine Kinase 61 (55-170) U/L CK-MB (CK-2) TNP CK-MB (CK-2) Rel Index TNP Troponin I < 0.012 (0.01-0.034) ng/mL Total Protein 8.1 (6.3-8.2) g/dL Albumin 4.3 (3.5-5.0) g/dL Globulin 3.8 (1.7-4.1) g/dL Albumin/Globulin Ratio 1.1 (1.0-2.8) Lipase 203 (23-300) U/L Discharge Plan Departure Patient Disposition: Home Clinical Impression: Anemia, Hypertension Instructions: Anemia, Essential Hypertension Activity Restrictions/Additional Instructions: *You have been diagnosed with anemia and high blood pressure *What to do: You need to call your PCP tomorrow, you need to have your blood work rechecked in 2 test 3 days Please continue monitoring her blood pressure at home *Continue to take medications as directed Tylenol 650 mg every 4-6 hours if needed for pain *Follow up with your primary care provider in 2-3 days or call [phone] *Return to ER if you should have blood pressure greater than 190/100, worsening dizziness, weakness, shortness of breath, chest pain, falls or any new, worsening or concerning symptoms Prescriptions: No Action metoprolol 25 mg 0.5 tab PO BID amlodipine 2.5 mg PO DAILY atorvastatin 40 mg tablet 40 mg PO DAILY aspirin [Adult Aspirin Regimen] 81 mg tablet,delayed release (DR/EC) 81 mg PO DAILY ascorbic acid (vitamin C) 1,000 mg tablet 500 mg PO DAILY Referrals: Jody Ferrara PA-C [Primary Care Provider] - Visit Report Forms: Patient Portal/API
--- NOTE | 2021-12-14 17:29 | DI.RAD.S_ITS ---
PROCEDURE: XR LUMBAR SPINE 2-3V INDICATIONS: pain left side TECHNIQUE: 3 views of the lumbar spine were acquired. COMPARISON: None. FINDINGS: Bones: Five [id number] vertebrae are present. Mild rightward curvature. Trace anterolisthesis L3 on four. Mildly decreased disc spacing overall. No vertebral body compression fractures. No suspicious bony lesions. Soft tissues: Several air-filled mildly prominent bowel loops. No suspicious soft tissue calcifications. Brachytherapy seeds in the prostate gland. IMPRESSION: 1. Minor rightward lumbar curvature and trace anterolisthesis L3-4. 2. Gas-filled bowel loops. Dictated by: Edyta Vargas M.D. on 12/14/2021 at 18:13 Approved by: Edyta Vargas M.D. on 12/14/2021 at 18:15
--- NOTE | 2021-12-14 17:29 | DI.CT.S_ITS ---
PROCEDURE: CT HEAD/BRAIN WO CON INDICATIONS: hypertension and dizzy TECHNIQUE: Noncontrast 4.5 mm thick angled axial sections acquired from the foramen magnum to the vertex, with coronal and sagittal reformats. For radiation dose reduction, the following was used: automated exposure control, adjustment of mA and/or kV according to patient size. COMPARISON: None. FINDINGS: Image quality: Excellent. CSF spaces: Basal cisterns are patent. No extra-axial fluid collections. The ventricles are symmetric in size and shape. Brain: No intracranial bleeds or masses. There is cerebral volume loss for age, with resultant ventricular and sulcal prominence. There are periventricular and deep white matter chronic small vessel ischemic changes. There is intracranial internal carotid artery atherosclerosis. Skull and face: Calvarium and visualized facial bones appear intact, without suspicious lesions. Sinuses: Visualized sinuses and mastoids are clear. IMPRESSION: 1. No CT evidence of acute intracranial process. 2. Age-appropriate cerebral cortical volume loss and chronic microvascular ischemic changes. Dictated by: Edyta Vargas M.D. on 12/14/2021 at 18:16 Approved by: Edyta Vargas M.D. on 12/14/2021 at 18:17
== END 2021-12-14 18:52 | disposition home or self-care (01) ==
PROVIDERS: Emergency Provider Emergency Medicine; PCP Physician Assistant
DX: D64.9 Anemia, unspecified (principal); I10 Essential (primary) hypertension; M54.50 Low back pain, unspecified; R42 Dizziness and giddiness; R07.9 Chest pain, unspecified
CPT/HCPCS: 36415; 70450; 71045; 72100; 80053; 82550; 83690; 83735; 84484; 85025; 93005; 93010; 99284

== ENCOUNTER 2022-01-02 21:41 | Inpatient (IN) | payer MEDICARE, SELFPAY ==
[2022-01-02] VITALS (8 sets, daily range): BP systolic 166–183; BP diastolic 72–78; PULSE 50–78; RESP 17–20; TEMP 36.7; O2SAT 94–100; BMI 17.9
--- NOTE | 2022-01-02 21:47 | ED.WEAKNESS ---
HPI - Weakness General Chief complaint: Fall Stated complaint: Weakness Time Seen by Provider: 01/02/22 21:44 History of Present Illness HPI Narrative: 86-year-old male nonsmoker with history of hypertension, hyperlipidemia and chronic kidney disease presents by EMS for evaluation of significant weakness over the past few days. He lives at home alone and has not been able to eat or drink and is not been able to care for himself. He stood up today in on multiple occasions nearly had syncopal episodes. He has had no fever chills and denies any chest pain or shortness of breath. He denies any nausea, vomiting or diarrhea. He denies any specific urinary complaints such as dysuria, frequency or urgency Related Data Home Medications Medication Instructions Recorded Confirmed aspirin 81 mg tablet,delayed 81 mg PO DAILY 04/01/20 07/20/21 release (Adult Aspirin Regimen) atorvastatin 40 mg tablet 40 mg PO DAILY 04/01/20 07/20/21 ascorbic acid (vitamin C) 1,000 mg 500 mg PO DAILY 04/06/20 07/20/21 tablet amlodipine PO DAILY 09/04/21 09/04/21 metoprolol 0.5 tab PO BID 09/04/21 09/04/21 Allergies Allergy/AdvReac Type Severity Reaction Status Date / Time No Known Drug Allergies Allergy Verified 12/14/21 15:25 Review of Systems Review of Systems Narrative: GENERAL: See HPI HEENT: Denies sinus pain, ear pain, sore throat, difficulty swallowing, dizziness. RESPIRATORY: Denies dyspnea, cough, wheezing, hemoptysis, sputum. CARDIOVASCULAR: See HPI GASTROINTESTINAL: Denies nausea, vomiting, abdominal pain, diarrhea, constipation, melena. : Denies dysuria, frequency, incontinence, hematuria, urinary retention. MUSCULOSKELETAL: see HPI SKIN: Denies rash, skin lesions, or other NEUROLOGIC: Denies weakness, headache, numbness, change in speech, confusion, seizures, incoordination. PSYCHIATRIC: No concerning psychosocial issues. 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 Family history of prostate cancer High blood pressure History of malignant neoplasm of prostate History of primary bladder cancer History of UTI Membranous urethral stricture Prostate cancer Prostate cancer Radiation cystitis Urinary incontinence Urinary incontinence due to urethral sphincter incompetence UTI (urinary tract infection) Surgical History H/O cystoscopy History of coronary artery stent placement Social History Smoking Status: Former smoker Smoking Status: Current every day smoker alcohol intake frequency: holidays/special occasions only Substance Use Type: does not use Exam Narrative Exam Narrative: GENERAL: [86] year old patient appears stated age. Thin, elderly, frail and ill-appearing, pleasantly confused. GCS 14 HEAD: Atraumatic. Normocephalic. EYES: Pupils equal round and reactive. Extraocular motions intact. No scleral icterus. No injection or drainage. ENT: Dry mucous membranes Nose without bleeding, purulent drainage. Throat without erythema, tonsillar hypertrophy or exudate. Airway patent. NECK: Trachea midline. Non tender CARDIOVASCULAR: Regular rate and rhythm without murmurs, gallops, or rubs. RESPIRATORY: Clear to auscultation. Breath sounds equal bilaterally. No wheezes, rales, or rhonchi. GASTROINTESTINAL: Abdomen soft, non-tender, nondistended. EXTREMITIES: No edema or joint tenderness. BACK: Nontender without deformity or crepitance. No flank tenderness. NEURO: AOx3. SKIN: Poor skin turgor No rash or erythema of visible areas Initial Vital Signs Initial Vital Signs: Vital Signs Pulse Rate 78 01/02/22 21:51 Course Orders Ordered: ED Orders 01/02/22 21:43 EKG-12 Lead Routine 01/02/22 21:48 XR chest 1V Stat 01/02/22 22:01 Complete Blood Count AUTO DIFF Stat Comprehensive Metabolic Panel Stat Lactate (Lactic Acid) Stat Lipase Stat Magnesium Stat NT-proBNP (BNP-Adult 18+) Stat Troponin & CK Cardiac Panel Stat 01/02/22 22:18 Blood Culture Stat 01/02/22 22:40 COVID19 -Nasal RAPID/Pre-Proc Stat 01/02/22 22:42 CT chest abd pel wo con Stat Creatinine Urine Random Stat Sodium Urine Random Stat 01/03/22 CT head/brain wo con Stat 01/03/22 02:10 Urinalysis and Microscopic Stat Urine Culture Stat 01/03/22 03:02 Creatinine & eGFR Stat Troponin & CK Cardiac Panel Stat Discontinued Medications Furosemide (Furosemide 100 Mg/10 Ml Vial) 60 mg IV NOW ONE Stop: 01/03/22 02:49 Last Admin: 01/03/22 03:01 Dose: 60 mg Documented By: WES Sodium Chloride (Normal Saline 0.9%) 500 mls @ 1,000 mls/hr IV BOLUS ONE Stop: 01/02/22 22:16 Last Admin: 01/02/22 23:14 Dose: Not Given Documented By: MALACHI Sodium Chloride (Normal Saline 0.9%) 1,000 mls @ 1,000 mls/hr IV BOLUS ONE Stop: 01/03/22 03:16 Last Infusion: 01/03/22 03:14 Dose: 0 mls/hr Documented By: Admin: 01/03/22 02:18 Dose: 1,000 mls/hr Documented By: WES Ceftriaxone Sodium 2,000 mg/ (Sodium Chloride) 100 mls @ 200 mls/hr IV NOW ONE Stop: 01/03/22 02:34 Last Infusion: 01/03/22 03:15 Dose: 0 mls/hr Documented By: Admin: 01/03/22 02:55 Dose: 200 mls/hr Documented By: WES Lactated Ringer's (Lactated Ringers) 1,000 mls @ 1,000 mls/hr IV BOLUS ONE Stop: 01/03/22 03:47 Last Admin: 01/03/22 03:02 Dose: 1,000 mls/hr Documented By: WES Vital Signs Vital signs: Vital Signs - 8 hr 01/02/22 21:51 01/02/22 21:54 01/02/22 21:54 Temperature Pulse Rate 78 75 Respiratory Rate 20 Blood Pressure 172/77 H Pulse Oximetry 100 Oxygen Delivery Method 01/02/22 22:20 01/02/22 22:00 01/02/22 22:00 Temperature 98.1 F Pulse Rate 61 71 Respiratory Rate 17 20 Blood Pressure 166/72 H 166/72 H Pulse Oximetry 98 100 Oxygen Delivery Method Room Air 01/02/22 22:30 01/02/22 22:30 01/02/22 23:05 Temperature Pulse Rate 58 L 62 Respiratory Rate 17 Blood Pressure 166/72 H Pulse Oximetry 99 94 Oxygen Delivery Method 01/02/22 23:30 01/02/22 23:31 01/02/22 23:31 Temperature Pulse Rate 51 L 50 L Respiratory Rate Blood Pressure 183/78 H Pulse Oximetry 99 99 Oxygen Delivery Method 01/03/22 00:00 01/03/22 00:30 01/03/22 01:00 Temperature Pulse Rate 49 L 48 L 46 L Respiratory Rate Blood Pressure Pulse Oximetry 98 100 99 Oxygen Delivery Method 01/03/22 01:30 01/03/22 02:00 01/03/22 02:30 Temperature Pulse Rate 62 46 L 55 L Respiratory Rate 25 H 17 13 Blood Pressure 179/76 H Pulse Oximetry 100 99 100 Oxygen Delivery Method 01/03/22 03:00 01/03/22 03:11 01/03/22 03:30 Temperature Pulse Rate 63 62 Respiratory Rate 18 17 Blood Pressure 221/89 H Pulse Oximetry 100 100 Oxygen Delivery Method 01/03/22 03:30 01/03/22 03:34 01/03/22 03:35 Temperature Pulse Rate 60 65 63 Respiratory Rate 18 21 14 Blood Pressure Pulse Oximetry 100 99 100 Oxygen Delivery Method 01/03/22 03:35 01/03/22 04:00 01/03/22 04:01 Temperature Pulse Rate 57 L 54 L Respiratory Rate 18 20 Blood Pressure 221/89 H Pulse Oximetry 99 99 Oxygen Delivery Method 01/03/22 04:01 01/03/22 04:30 01/03/22 04:31 Temperature Pulse Rate 55 L Respiratory Rate 16 Blood Pressure 204/87 H 206/85 H Pulse Oximetry 99 Oxygen Delivery Method 01/03/22 04:31 01/03/22 05:00 01/03/22 05:00 Temperature Pulse Rate 54 L 51 L Respiratory Rate 18 21 Blood Pressure 181/125 H Pulse Oximetry 99 100 Oxygen Delivery Method MDM - Weakness Lab Data Result diagrams: 01/02/22 22:01 01/03/22 03:02 Labs: Lab Results 01/02/22 01/02/22 01/02/22 Range/Units 22:01 22:01 22:01 WBC 9.9 (4.5-11.0) X10^3/uL RBC 3.36 L (4.5-5.9) X10^6/uL Hgb 11.1 L (13.5-17.5) g/dL Hct 33.6 L (41-53) % MCV 100.0 (80-100) fL MCH 33.0 (26-34) PG MCHC 33.0 (30-36) % RDW 14.5 (11.6-14.8) % Plt Count 224 (150-400) X10^3/uL Neut % (Auto) 80.9 H (50-75) % Lymph % (Auto) 12.1 L (25-40) % Baxter % (Auto) 6.3 (3-14) % Eos % (Auto) 0.3 L (2-4) % Baso % (Auto) 0.4 (0-2) % Neut # (Auto) 8000 H (6321-0819) /uL Lymph # (Auto) 1200 (3804-8503) /uL Baxter # (Auto) 600 (0-900) /uL Eos # (Auto) 0 (0-450) /uL Baso # (Auto) 0 (0-100) /uL Sodium 139 (137-145) mmol/L Potassium 4.5 (3.4-5.1) mmol/L Chloride 104 (98-107) mmol/L Carbon Dioxide 16 L (22-32) mmol/L BUN 58 H (9-20) mg/dL Creatinine 3.54 H (0.66-1.25) mg/dL Estimated GFR 16 L (>60) mL/min BUN/Creatinine Ratio 16.4 (6-22) Glucose 131 H (80-110) mg/dL Lactate 5.5 H* (0.7-2.1) mmol/L Calcium 10.4 H (8.4-10.2) mg/dL Magnesium 2.1 (1.6-2.3) mg/dL Total Bilirubin 1.2 (0.2-1.3) mg/dL AST 43 (17-59) IU/L ALT 22 (<50) IU/L Alkaline Phosphatase 74 (38-126) U/L Total Creatine Kinase 253 H (55-170) U/L CK-MB (CK-2) 3.86 H (<2.37) ng/mL CK-MB (CK-2) Rel Index 1.5 (1.5-5.0) % Troponin I 0.094 H (0.01-0.034) ng/mL NT-Pro-B Natriuret Pep 4320 H (<450) pg/mL Total Protein 8.9 H (6.3-8.2) g/dL Albumin 4.8 (3.5-5.0) g/dL Globulin 4.1 (1.7-4.1) g/dL Albumin/Globulin Ratio 1.2 (1.0-2.8) Lipase 154 (23-300) U/L Urine Color Urine Appearance Urine pH (4.5-8.0) Ur Specific [place] (1.000-1.035) Urine Protein (Negative) Urine Glucose (UA) (Negative) g/dL Urine Ketones (NEGATIVE) Urine Occult Blood (Negative) Urine Nitrate (Negative) Urine Bilirubin (NEGATIVE) Urine Urobilinogen (0.2) E.U./dL Ur Leukocyte Esterase (NEGATIVE) Urine RBC (0-5/HPF) Urine WBC (0-5/HPF) Ur Squamous Epith Cells (0-5/HPF) Urine Bacteria (None) Ur Culture Indicated? Ur Random Sodium (30-90) mmol/L Urine Creatinine mg/dL SARS-CoV-2 (PCR) (Negative) 01/02/22 01/03/22 01/03/22 Range/Units 22:40 00:21 02:10 WBC (4.5-11.0) X10^3/uL RBC (4.5-5.9) X10^6/uL Hgb (13.5-17.5) g/dL Hct (41-53) % MCV (80-100) fL MCH (26-34) PG MCHC (30-36) % RDW (11.6-14.8) % Plt Count (150-400) X10^3/uL Neut % (Auto) (50-75) % Lymph % (Auto) (25-40) % Baxter % (Auto) (3-14) % Eos % (Auto) (2-4) % Baso % (Auto) (0-2) % Neut # (Auto) (9351-5415) /uL Lymph # (Auto) (7431-9035) /uL Baxter # (Auto) (0-900) /uL Eos # (Auto) (0-450) /uL Baso # (Auto) (0-100) /uL Sodium (137-145) mmol/L Potassium (3.4-5.1) mmol/L Chloride (98-107) mmol/L Carbon Dioxide (22-32) mmol/L BUN (9-20) mg/dL Creatinine (0.66-1.25) mg/dL Estimated GFR (>60) mL/min BUN/Creatinine Ratio (6-22) Glucose (80-110) mg/dL Lactate 1.1 (0.7-2.1) mmol/L Calcium (8.4-10.2) mg/dL Magnesium (1.6-2.3) mg/dL Total Bilirubin (0.2-1.3) mg/dL AST (17-59) IU/L ALT (<50) IU/L Alkaline Phosphatase (38-126) U/L Total Creatine Kinase (55-170) U/L CK-MB (CK-2) (<2.37) ng/mL CK-MB (CK-2) Rel Index (1.5-5.0) % Troponin I (0.01-0.034) ng/mL NT-Pro-B Natriuret Pep (<450) pg/mL Total Protein (6.3-8.2) g/dL Albumin (3.5-5.0) g/dL Globulin (1.7-4.1) g/dL Albumin/Globulin Ratio (1.0-2.8) Lipase (23-300) U/L Urine Color Urine Appearance Urine pH (4.5-8.0) Ur Specific [place] (1.000-1.035) Urine Protein (Negative) Urine Glucose (UA) (Negative) g/dL Urine Ketones (NEGATIVE) Urine Occult Blood (Negative) Urine Nitrate (Negative) Urine Bilirubin (NEGATIVE) Urine Urobilinogen (0.2) E.U./dL Ur Leukocyte Esterase (NEGATIVE) Urine RBC (0-5/HPF) Urine WBC (0-5/HPF) Ur Squamous Epith Cells (0-5/HPF) Urine Bacteria (None) Ur Culture Indicated? Ur Random Sodium 47 (30-90) mmol/L Urine Creatinine 96.9 mg/dL SARS-CoV-2 (PCR) Negative (Negative) 01/03/22 01/03/22 Range/Units 02:10 03:02 WBC (4.5-11.0) X10^3/uL RBC (4.5-5.9) X10^6/uL Hgb (13.5-17.5) g/dL Hct (41-53) % MCV (80-100) fL MCH (26-34) PG MCHC (30-36) % RDW (11.6-14.8) % Plt Count (150-400) X10^3/uL Neut % (Auto) (50-75) % Lymph % (Auto) (25-40) % Baxter % (Auto) (3-14) % Eos % (Auto) (2-4) % Baso % (Auto) (0-2) % Neut # (Auto) (3399-6642) /uL Lymph # (Auto) (9594-7601) /uL Baxter # (Auto) (0-900) /uL Eos # (Auto) (0-450) /uL Baso # (Auto) (0-100) /uL Sodium (137-145) mmol/L Potassium (3.4-5.1) mmol/L Chloride (98-107) mmol/L Carbon Dioxide (22-32) mmol/L BUN (9-20) mg/dL Creatinine 3.01 H (0.66-1.25) mg/dL Estimated GFR 20 L (>60) mL/min BUN/Creatinine Ratio (6-22) Glucose (80-110) mg/dL Lactate (0.7-2.1) mmol/L Calcium (8.4-10.2) mg/dL Magnesium (1.6-2.3) mg/dL Total Bilirubin (0.2-1.3) mg/dL AST (17-59) IU/L ALT (<50) IU/L Alkaline Phosphatase (38-126) U/L Total Creatine Kinase 412 H (55-170) U/L CK-MB (CK-2) 3.70 H (<2.37) ng/mL CK-MB (CK-2) Rel Index 0.9 L (1.5-5.0) % Troponin I 0.107 H (0.01-0.034) ng/mL NT-Pro-B Natriuret Pep (<450) pg/mL Total Protein (6.3-8.2) g/dL Albumin (3.5-5.0) g/dL Globulin (1.7-4.1) g/dL Albumin/Globulin Ratio (1.0-2.8) Lipase (23-300) U/L Urine Color Yellow Urine Appearance Sl cloudy Urine pH 5.0 (4.5-8.0) Ur Specific [place] 1.020 (1.000-1.035) Urine Protein 2+ H (Negative) Urine Glucose (UA) Negative (Negative) g/dL Urine Ketones Trace H (NEGATIVE) Urine Occult Blood 3+ H (Negative) Urine Nitrate Negative (Negative) Urine Bilirubin Negative (NEGATIVE) Urine Urobilinogen 0.2 (0.2) E.U./dL Ur Leukocyte Esterase 2+ H (NEGATIVE) Urine RBC 0-1/hpf (0-5/HPF) Urine WBC 30-100/hpf H (0-5/HPF) Ur Squamous Epith Cells 1-5 /hpf (0-5/HPF) Urine Bacteria Moderate (10-30) H (None) Ur Culture Indicated? Specimen cultured Ur Random Sodium (30-90) mmol/L Urine Creatinine mg/dL SARS-CoV-2 (PCR) (Negative) Imaging Data CT scan - abdomen/pelvis: Radiologist Impression: [address] [address] [address] Scan Report Signed Patient: Justin Sheridan MR#: [id number] : 1935 Acct:[id number] Age/Sex: 86 / M Date of Service: 01/02/22 Loc: ED Accession Number: [id number] ?? Procedure: CT chest abd pel wo con Ordering Provider: Octavio Butcher D.O. PROCEDURE:? CT CHEST ABD PEL WO CON ? INDICATIONS:? weak, fatigue, falls, worsening renal ? TECHNIQUE:? 5 mm thick sections acquired from the lung apices to the symphysis pubis.? 5 mm thick coronal and sagittal reformats acquired, with additional 7 mm coronal MIP reformats through the lungs.? For radiation dose reduction, the following was used:? automated exposure control, adjustment of mA and/or kV according to patient size.? ? COMPARISON:? [facility], CT, CT ABDOMEN PELVIS WITH CONTRAST, 09/10/2017, 20:11.? [facility], CT, CT CHEST W CON, 10/12/2020, 11:18. ? FINDINGS:? Image quality:? Excellent.? ? CHEST:? Lower Neck: No lymphadenopathy by size criteria. Thyroid:? Visualized thyroid demonstrates no discrete nodules. Axillae: No lymphadenopathy by size criteria. Chest Wall:? Unremarkable.? ? Lungs and Airways:? No acute consolidation.? There is mild dependent atelectasis.? Mild scarring demonstrated in the right lung apex.? There are mild paraseptal emphysematous changes.? No suspicious pulmonary nodules. The trachea and central airways are patent. Pleura: No pneumothorax or pleural effusions.? ? Heart: Heart size is normal.? No pericardial effusion.? There is severe coronary arterial vascular calcification. Thoracic Vessels: The aorta and pulmonary arteries are normal in size.? Mediastinum and Fartun: No lymphadenopathy by size criteria. Esophagus: No wall thickening. No hiatal hernia. ? .? ? ABDOMEN: Liver:? Noncontrast evaluation of the liver demonstrates no discrete hepatic mass. Gallbladder:? There are small dependent foci of high density within the gallbladder likely representing gallstones.? No associated gallbladder wall thickening.? Biliary ducts:? No biliary ductal dilatation.? ? Pancreas:? Unremarkable.? ? Spleen:? Normal in size.? ? Adrenal Glands:? There is thickening of the adrenal glands, left greater than right. Kidneys and Ureters:? No hydronephrosis.? There are bilateral renal cysts.? Bilateral nonobstructing renal stones are also present, with a 0.2 cm stone on the right.? On the left, there is a nonobstructing stone within the inferior pole measuring up to 0.3 cm.? In the superior pole, there are 2 additional linear calcifications which are suggestive of vascular calcifications. ? Stomach and Bowel:? Stomach, small bowel loops, and colon are normal in caliber and wall thickness.? No definite pericecal inflammatory changes to suggest appendicitis.? There is colonic diverticulosis without acute diverticulitis.? Peritoneum:? No abnormal intraperitoneal fluid.? No free air.? ? Ventral Wall: ? No hernia.? Abdominal Nodes:? No retroperitoneal or mesenteric adenopathy by size criteria.? Vessels:? Aorta and inferior vena cava are normal in size.? There is extensive atherosclerotic vascular calcification of the aorta and its branch vessels. ? PELVIS: Pelvic Organs:? Multiple radiation seeds are demonstrated within the prostate.? ? Bladder:? There is mild bladder wall thickening with associated mild periarticular fat stranding.? ? Pelvic Nodes: No enlarged lymph nodes.? Miscellaneous: No inguinal hernias are seen. ? ? ? Bones:? Visualized osseous structures demonstrate no suspicious focal lesions. ? ? IMPRESSION:? ? 1. Mild bladder wall thickening and associated fat stranding suggestive of a cystitis.? Recommend correlation with urinalysis. ? 2. Suspected cholelithiasis without definite CT evidence of cholecystitis. ? 3. Bilateral nephrolithiasis without evidence of obstructive uropathy. ? 4. Colonic diverticulosis without acute diverticulitis. ? ? Dictated by: Anibal Brewer M.D. on 01/03/2022 at 0:08 ? ? Discharge Plan Departure Patient Disposition: Admitted as Observation Clinical Impression: Acute UTI, Adult failure to thrive, Acute kidney injury superimposed on chronic kidney disease, Weakness Admit Date/Time: 01/03/22 05:13 Admit Provider: William Loredo
--- NOTE | 2022-01-02 21:48 | DI.RAD.S_ITS ---
PROCEDURE: XR CHEST 1V INDICATIONS: weakness TECHNIQUE: One view of the chest was acquired. COMPARISON: [facility], CR, XR CHEST 1V, 12/14/2021, 15:57. FINDINGS: Surgical changes and devices: None. Lungs and pleura: Lungs are clear. No pleural effusions or pneumothorax. Mediastinum: Mediastinal contours appear normal. Heart size is normal. Bones and chest wall: No suspicious bony lesions. Overlying soft tissues appear unremarkable. IMPRESSION: 1. No acute cardiopulmonary disease. Dictated by: Anibal Brewer M.D. on 01/03/2022 at 0:50 Approved by: Anibal Brewer M.D. on 01/03/2022 at 0:51
[2022-01-02 22:17] LABS: Add Manual Diff / Slide Review NO; Basophils Absolute Auto 0 /uL (0-100); Basophils Percent Auto 0.4 % (0-2); Eosinophils Absolute Auto 0 /uL (0-450); Eosinophils Percent Auto 0.3 % (2-4); Hematocrit 33.6 % (41-53); Hemoglobin 11.1 g/dL (13.5-17.5); Lymphocytes Absolute Auto 1200 /uL (1100-4500); Lymphocytes Percent Auto 12.1 % (25-40); Monocytes Absolute Auto 600 /uL (0-900); Monocytes Percent Auto 6.3 % (3-14); Neutrophils Absolute Auto 8000 /uL (1500-7000); Neutrophils Percent Auto 80.9 % (50-75); Platelet Count 224 X10^3/uL (150-400); Red Blood Cell Count 3.36 X10^6/uL (4.5-5.9); Red Cell Distribution Width 14.5 % (11.6-14.8); White Blood Cell Count 9.9 X10^3/uL (4.5-11.0)
[2022-01-02 22:19] LABS: Alanine Aminotransferase 22 IU/L (<50); Albumin 4.8 g/dL (3.5-5.0); Albumin Globulin Ratio 1.2 (1.0-2.8); Alkaline Phosphatase 74 U/L (38-126); Aspartate Aminotransferase 43 IU/L (17-59); BUN Creatinine Ratio 16.4 (6-22); Bilirubin Total 1.2 mg/dL (0.2-1.3); Blood Urea Nitrogen 58 mg/dL (9-20); Calcium 10.4 mg/dL (8.4-10.2); Carbon Dioxide 16 mmol/L (22-32); Chloride 104 mmol/L (98-107); Creatine Kinase 253 U/L (55-170); Estimated Glomerular Filt Rate 16 mL/min (>60); Globulin 4.1 g/dL (1.7-4.1); Glucose 131 mg/dL (80-110); HEMOLYSIS < 15 (0-50); Lipase 154 U/L (23-300); Magnesium 2.1 mg/dL (1.6-2.3); Potassium 4.5 mmol/L (3.4-5.1); Sodium 139 mmol/L (137-145); Total Protein 8.9 g/dL (6.3-8.2)
[2022-01-02 22:30] LABS: NT-proBNP (BNP-Adult 18+) 4320 pg/mL (<450); Troponin I 0.094 ng/mL (0.01-0.034)
[2022-01-02 22:31] LABS: Lactate (Lactic Acid) 5.5 mmol/L (0.7-2.1)
[2022-01-02 22:34] LABS: CKMB % Relative Index 1.5 % (1.5-5.0); Creatine Kinase MB 3.86 ng/mL (<2.37)
--- NOTE | 2022-01-02 22:42 | DI.CT.S_ITS ---
PROCEDURE: CT CHEST ABD PEL WO CON INDICATIONS: weak, fatigue, falls, worsening renal TECHNIQUE: 5 mm thick sections acquired from the lung apices to the symphysis pubis. 5 mm thick coronal and sagittal reformats acquired, with additional 7 mm coronal MIP reformats through the lungs. For radiation dose reduction, the following was used: automated exposure control, adjustment of mA and/or kV according to patient size. COMPARISON: [facility], CT, CT ABDOMEN PELVIS WITH CONTRAST, 09/10/2017, 20:11. [facility], CT, CT CHEST W CON, 10/12/2020, 11:18. FINDINGS: Image quality: Excellent. CHEST: Lower Neck: No lymphadenopathy by size criteria. Thyroid: Visualized thyroid demonstrates no discrete nodules. Axillae: No lymphadenopathy by size criteria. Chest Wall: Unremarkable. Lungs and Airways: No acute consolidation. There is mild dependent atelectasis. Mild scarring demonstrated in the right lung apex. There are mild paraseptal emphysematous changes. No suspicious pulmonary nodules. The trachea and central airways are patent. Pleura: No pneumothorax or pleural effusions. Heart: Heart size is normal. No pericardial effusion. There is severe coronary arterial vascular calcification. Thoracic Vessels: The aorta and pulmonary arteries are normal in size. Mediastinum and Fartun: No lymphadenopathy by size criteria. Esophagus: No wall thickening. No hiatal hernia. . ABDOMEN: Liver: Noncontrast evaluation of the liver demonstrates no discrete hepatic mass. Gallbladder: There are small dependent foci of high density within the gallbladder likely representing gallstones. No associated gallbladder wall thickening. Biliary ducts: No biliary ductal dilatation. Pancreas: Unremarkable. Spleen: Normal in size. Adrenal Glands: There is thickening of the adrenal glands, left greater than right. Kidneys and Ureters: No hydronephrosis. There are bilateral renal cysts. Bilateral nonobstructing renal stones are also present, with a 0.2 cm stone on the right. On the left, there is a nonobstructing stone within the inferior pole measuring up to 0.3 cm. In the superior pole, there are 2 additional linear calcifications which are suggestive of vascular calcifications. Stomach and Bowel: Stomach, small bowel loops, and colon are normal in caliber and wall thickness. No definite pericecal inflammatory changes to suggest appendicitis. There is colonic diverticulosis without acute diverticulitis. Peritoneum: No abnormal intraperitoneal fluid. No free air. Ventral Wall: No hernia. Abdominal Nodes: No retroperitoneal or mesenteric adenopathy by size criteria. Vessels: Aorta and inferior vena cava are normal in size. There is extensive atherosclerotic vascular calcification of the aorta and its branch vessels. PELVIS: Pelvic Organs: Multiple radiation seeds are demonstrated within the prostate. Bladder: There is mild bladder wall thickening with associated mild periarticular fat stranding. Pelvic Nodes: No enlarged lymph nodes. Miscellaneous: No inguinal hernias are seen. Bones: Visualized osseous structures demonstrate no suspicious focal lesions. IMPRESSION: 1. Mild bladder wall thickening and associated fat stranding suggestive of a cystitis. Recommend correlation with urinalysis. 2. Suspected cholelithiasis without definite CT evidence of cholecystitis. 3. Bilateral nephrolithiasis without evidence of obstructive uropathy. 4. Colonic diverticulosis without acute diverticulitis. Dictated by: Anibal Brewer M.D. on 01/03/2022 at 0:08 Approved by: Anibal Brewer M.D. on 01/03/2022 at 0:16
[2022-01-02 23:03] LABS: COVID19 -Nasal RAPID Negative (Negative)
--- NOTE | 2022-01-02 23:13 | PC.NURSE ---
500ml of NS given by EMS in field. other 500ml given at providers request. total of 1000ml of NS
[2022-01-03] VITALS (28 sets, daily range): BP systolic 127–224; BP diastolic 49–125; PULSE 46–65; RESP 13–25; TEMP 36.5–36.8; O2SAT 95–100; BMI 18.7
--- NOTE | 2022-01-03 | DI.CT.S_ITS ---
PROCEDURE: CT HEAD/BRAIN WO CON INDICATIONS: Possible fall, confusion TECHNIQUE: Noncontrast 4.5 mm thick angled axial sections acquired from the foramen magnum to the vertex, with coronal and sagittal reformats. For radiation dose reduction, the following was used: automated exposure control, adjustment of mA and/or kV according to patient size. COMPARISON: [facility], CT, CT HEAD/BRAIN WO CON, 12/14/2021, 17:32. FINDINGS: Image quality: Excellent. CSF spaces: Basal cisterns are patent. No extra-axial fluid collections. The ventricles are symmetric in size and shape. Brain: No intracranial bleeds or masses. There is cerebral volume loss for age, with resultant ventricular and sulcal prominence. There are periventricular and deep white matter chronic small vessel ischemic changes. There is intracranial internal carotid artery atherosclerosis. Skull and face: Calvarium and visualized facial bones appear intact, without suspicious lesions. Sinuses: Mild mucosal thickening in the visualized maxillary sinuses, right greater than left. The mastoids are clear. IMPRESSION: No acute intracranial disease process. Dictated by: Nuzhat Day MD, PhD on 01/03/2022 at 7:02 Approved by: Nuzhat Day MD, PhD on 01/03/2022 at 7:04
[2022-01-03 00:01] LABS: Reflexed Lactate in 2 Hours Y
[2022-01-03 00:41] LABS: Lactate 2HR (Lactic Acid Rflx) 1.1 mmol/L (0.7-2.1)
[2022-01-03] MEDS: SODIUM CHLORIDE 0.9% 1,000 ML 1000 ML IV (02:18)
[2022-01-03 02:27] LABS: Appearance Urine UA SL CLOUDY; Bilirubin Urine UA NEGATIVE (NEGATIVE); Color Urine UA YELLOW; Glucose Urine UA NEGATIVE (Negative); Ketones Urine UA TRACE (NEGATIVE); Leukocyte Esterase Urine UA 2+ (NEGATIVE); Nitrite Urine UA NEGATIVE (Negative); Occult Blood Urine UA 3+ (Negative); Protein Urine UA 2+ (Negative); RBC Urine 0-1/HPF (0-5/HPF); Squamous Epithelial Cell Urine 1-5 /HPF (0-5/HPF); Urobilinogen Urine UA 0.2 E.U./dL (0.2); WBC Urine 30-100/HPF (0-5/HPF)
[2022-01-03 02:28] LABS: Bacteria Urine Moderate (10-30); Culture Indicated Urine Specimen Cultured
[2022-01-03 02:38] LABS: Creatinine Urine Random 96.9 mg/dL; Sodium Urine Random 47 mmol/L (30-90)
[2022-01-03] MEDS: cefTRIAXone 2,000 MG in SODIUM CHLORIDE 0.9% 100 ML 200 MG IV (02:55)
[2022-01-03] MEDS: FUROSEMIDE 100 MG/10 ML VIAL 60 MG IV (03:01)
[2022-01-03] MEDS: LACTATED RINGERS 1,000 ML 1000 ML IV (03:02)
[2022-01-03 03:23] LABS: Creatine Kinase 412 U/L (55-170); Estimated Glomerular Filt Rate 20 mL/min (>60)
[2022-01-03 03:36] LABS: Troponin I 0.107 ng/mL (0.01-0.034)
[2022-01-03 03:39] LABS: CKMB % Relative Index 0.9 % (1.5-5.0)
--- NOTE | 2022-01-03 04:45 | P.HP_ITS ---
History of Present Illness History of Present Illness Date Patient Seen: 01/03/22 Time Patient Seen: 04:30 Chief complaint: Weakness Narrative: Mr. Sheridan is an 86M with PMH CAD, hx prostate cancer, CKD stage 3-4, HTN who presents with weakness. He has been weak the last few days. He lives alone and has difficulty taking care of himself recently. He is quite confused. He says he had falls. No fevers, chills. No dysuria. No nausea, vomiting, diarrhea. In the ED workup was done, vitals notable for high blood pressure. Labs notable for WBC 9.9, hgb 11.1, plts 224. Na 139, co2 16, BUN 58, creatinine 3.54. Lactate 5.5 resolved after IV fluid bolus. Troponin 0.094. BNP 4320. He was given IV fluids, lasix, and ceftriaxone, and admitted for further treatment. Family history: patient asked but is encephalopathic and unable to verify Patient History Medical History Anemia Bladder cancer Coronary stent patent Depression Erectile dysfunction 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 Family history of prostate cancer High blood pressure History of malignant neoplasm of prostate History of primary bladder cancer History of UTI Membranous urethral stricture Prostate cancer Prostate cancer Radiation cystitis Urinary incontinence Urinary incontinence due to urethral sphincter incompetence UTI (urinary tract infection) Surgical History H/O cystoscopy History of coronary artery stent placement Family & Social History Safety & Behavioral: Feels Safe in Current Yes Environment Tobacco & Substance use: Smoking Status Former smoker alcohol intake frequency holiday/special occasion Substance Use Type does not use Meds Home Medications and Allergies Home Medications Medication Instructions Recorded Confirmed Type aspirin 81 mg tablet,delayed 81 mg PO DAILY 04/01/20 07/20/21 History release (Adult Aspirin Regimen) atorvastatin 40 mg tablet 40 mg PO DAILY 04/01/20 07/20/21 History ascorbic acid (vitamin C) 1,000 mg 500 mg PO DAILY 04/06/20 07/20/21 History tablet amlodipine PO DAILY 09/04/21 09/04/21 History metoprolol 0.5 tab PO BID 09/04/21 09/04/21 History Allergies Allergy/AdvReac Type Severity Reaction Status Date / Time No Known Drug Allergies Allergy Verified 12/14/21 15:25 Review of Systems Review of Systems Narrative: 14 systems reviewed and negative aside from what is noted in HPI Exam Vital Signs (past 8 hours): - 01/02/22 21:51 01/02/22 21:54 01/02/22 21:54 Temperature Pulse Rate 78 75 Respiratory Rate 20 Blood Pressure 172/77 H Pulse Oximetry 100 Oxygen Delivery Method 01/02/22 22:20 01/02/22 22:00 01/02/22 22:00 Temperature 98.1 F Pulse Rate 61 71 Respiratory Rate 17 20 Blood Pressure 166/72 H 166/72 H Pulse Oximetry 98 100 Oxygen Delivery Method Room Air 01/02/22 22:30 01/02/22 22:30 01/02/22 23:05 Temperature Pulse Rate 58 L 62 Respiratory Rate 17 Blood Pressure 166/72 H Pulse Oximetry 99 94 Oxygen Delivery Method 01/02/22 23:30 01/02/22 23:31 01/02/22 23:31 Temperature Pulse Rate 51 L 50 L Respiratory Rate Blood Pressure 183/78 H Pulse Oximetry 99 99 Oxygen Delivery Method 01/03/22 00:00 01/03/22 00:30 01/03/22 01:00 Temperature Pulse Rate 49 L 48 L 46 L Respiratory Rate Blood Pressure Pulse Oximetry 98 100 99 Oxygen Delivery Method 01/03/22 01:30 01/03/22 02:00 01/03/22 02:30 Temperature Pulse Rate 62 46 L 55 L Respiratory Rate 25 H 17 13 Blood Pressure 179/76 H Pulse Oximetry 100 99 100 Oxygen Delivery Method 01/03/22 03:00 01/03/22 03:11 01/03/22 03:30 Temperature Pulse Rate 63 62 Respiratory Rate 18 17 Blood Pressure 221/89 H Pulse Oximetry 100 100 Oxygen Delivery Method 01/03/22 03:30 01/03/22 03:34 01/03/22 03:35 Temperature Pulse Rate 60 65 63 Respiratory Rate 18 21 14 Blood Pressure Pulse Oximetry 100 99 100 Oxygen Delivery Method 01/03/22 03:35 Temperature Pulse Rate Respiratory Rate Blood Pressure 221/89 H Pulse Oximetry Oxygen Delivery Method Oxygen Delivery Method Room Air Narrative Exam Narrative: GEN: no acute distress HEENT: dry mucous membranes, PERRL NECK: trachea midline, no JVD PULM: clear bilaterally CV: regular rate and rhythm, no murmurs ABD: soft, nontender, nondistended, no organomegaly, normal bowel sounds EXT: warm and well perfused with no edema NEURO: awake, confused, oriented x1, no focal deficits but notable restless/picking behavior Objective Labs Result Diagrams: 01/02/22 22:01 01/03/22 03:02 Labs: Laboratory Results - last 24 hr 01/02/22 01/02/22 01/02/22 22:01 22:01 22:01 WBC 9.9 RBC 3.36 L Hgb 11.1 L Hct 33.6 L MCV 100.0 MCH 33.0 MCHC 33.0 RDW 14.5 Plt Count 224 Neut % (Auto) 80.9 H Lymph % (Auto) 12.1 L [place] % (Auto) 6.3 Eos % (Auto) 0.3 L Baso % (Auto) 0.4 Neut # (Auto) 8000 H Lymph # (Auto) 1200 [place] # (Auto) 600 Eos # (Auto) 0 Baso # (Auto) 0 Sodium 139 Potassium 4.5 Chloride 104 Carbon Dioxide 16 L BUN 58 H Creatinine 3.54 H Estimated GFR 16 L BUN/Creatinine Ratio 16.4 Glucose 131 H Lactate 5.5 H* Calcium 10.4 H Magnesium 2.1 Total Bilirubin 1.2 AST 43 ALT 22 Alkaline Phosphatase 74 Total Creatine Kinase 253 H CK-MB (CK-2) 3.86 H CK-MB (CK-2) Rel Index 1.5 Troponin I 0.094 H NT-Pro-B Natriuret Pep 4320 H Total Protein 8.9 H Albumin 4.8 Globulin 4.1 Albumin/Globulin Ratio 1.2 Lipase 154 Urine Color Urine Appearance Urine pH Ur Specific [place] Urine Protein Urine Glucose (UA) Urine Ketones Urine Occult Blood Urine Nitrate Urine Bilirubin Urine Urobilinogen Ur Leukocyte Esterase Urine RBC Urine WBC Ur Squamous Epith Cells Urine Bacteria Ur Culture Indicated? Ur Random Sodium Urine Creatinine SARS-CoV-2 (PCR) 01/02/22 01/03/22 01/03/22 22:40 00:21 02:10 WBC RBC Hgb Hct MCV MCH MCHC RDW Plt Count Neut % (Auto) Lymph % (Auto) [place] % (Auto) Eos % (Auto) Baso % (Auto) Neut # (Auto) Lymph # (Auto) [place] # (Auto) Eos # (Auto) Baso # (Auto) Sodium Potassium Chloride Carbon Dioxide BUN Creatinine Estimated GFR BUN/Creatinine Ratio Glucose Lactate 1.1 Calcium Magnesium Total Bilirubin AST ALT Alkaline Phosphatase Total Creatine Kinase CK-MB (CK-2) CK-MB (CK-2) Rel Index Troponin I NT-Pro-B Natriuret Pep Total Protein Albumin Globulin Albumin/Globulin Ratio Lipase Urine Color Urine Appearance Urine pH Ur Specific [place] Urine Protein Urine Glucose (UA) Urine Ketones Urine Occult Blood Urine Nitrate Urine Bilirubin Urine Urobilinogen Ur Leukocyte Esterase Urine RBC Urine WBC Ur Squamous Epith Cells Urine Bacteria Ur Culture Indicated? Ur Random Sodium 47 Urine Creatinine 96.9 SARS-CoV-2 (PCR) Negative 01/03/22 01/03/22 02:10 03:02 WBC RBC Hgb Hct MCV MCH MCHC RDW Plt Count Neut % (Auto) Lymph % (Auto) [place] % (Auto) Eos % (Auto) Baso % (Auto) Neut # (Auto) Lymph # (Auto) [place] # (Auto) Eos # (Auto) Baso # (Auto) Sodium Potassium Chloride Carbon Dioxide BUN Creatinine 3.01 H Estimated GFR 20 L BUN/Creatinine Ratio Glucose Lactate Calcium Magnesium Total Bilirubin AST ALT Alkaline Phosphatase Total Creatine Kinase 412 H CK-MB (CK-2) 3.70 H CK-MB (CK-2) Rel Index 0.9 L Troponin I 0.107 H NT-Pro-B Natriuret Pep Total Protein Albumin Globulin Albumin/Globulin Ratio Lipase Urine Color Yellow Urine Appearance Sl cloudy Urine pH 5.0 Ur Specific [place] 1.020 Urine Protein 2+ H Urine Glucose (UA) Negative Urine Ketones Trace H Urine Occult Blood 3+ H Urine Nitrate Negative Urine Bilirubin Negative Urine Urobilinogen 0.2 Ur Leukocyte Esterase 2+ H Urine RBC 0-1/hpf Urine WBC 30-100/hpf H Ur Squamous Epith Cells 1-5 /hpf Urine Bacteria Moderate (10-30) H Ur Culture Indicated? Specimen cultured Ur Random Sodium Urine Creatinine SARS-CoV-2 (PCR) Assessment & Plan Assessment & Plan narrative: Mr. Sheridan is an 86M with PMH CKD, CAD , HTN who presents with weakness found to have encephalopathy, ELA and UTI. 1. UTI -UA positive -cultures pending -continue ceftriaxone 2. Acute metabolic encephalopathy -probably secondary to infection -with possibility of falls at home will rule out head injury with CT head 3. ELA on CKD stage 4 -recent creatinine has been 2.5-3 -on arrival to ED creatinine 3.54 -improved to 3.01 after IV fluids, may be back to baseline -continue to trend while patient remains in hospital 4. History of prostate cancer -s/p treatment -no evidence of urinary retention on imaging 5. CAD s/p stents with HTN -continue aspirin, statin, metoprolol -has mildly elevated troponin consistent with cardiac demand ischemia, no chest pain or shortness of breath CODE: unable to obtain, patient encephalopathic Proxy: Gianluca Madrid, friend I have utilized all available resources to reconcile the patient's home medications Time Spent With Patient Critical Care time: I spent a total of [] minutes of critical care time on this patient's care today; this time is exclusive of procedural time.
[2022-01-03] MEDS: lisinopriL 5 MG TABLET PO (07:35)
[2022-01-03] MEDS: AMLODIPINE 5 MG TABLET PO (07:35)
[2022-01-03] MEDS: HEPARIN 5,000 UNIT/ML VIAL 5000 UNIT SUBCUT ×2 (08:38→20:20)
[2022-01-03 11:22] LABS: Add Manual Diff / Slide Review NO; Basophils Absolute Auto 0 /uL (0-100); Basophils Percent Auto 0.4 % (0-2); Eosinophils Absolute Auto 0 /uL (0-450); Eosinophils Percent Auto 0.6 % (2-4); Hematocrit 27.7 % (41-53); Hemoglobin 9.5 g/dL (13.5-17.5); Lymphocytes Absolute Auto 1000 /uL (1100-4500); Lymphocytes Percent Auto 12.8 % (25-40); Mean Corpuscular HGB Conc 34.4 % (30-36); Mean Corpuscular Hemoglobin 33.6 PG (26-34); Mean Corpuscular Volume 97.9 fL (80-100); Monocytes Absolute Auto 1000 /uL (0-900); Monocytes Percent Auto 12.9 % (3-14); Neutrophils Absolute Auto 5700 /uL (1500-7000); Neutrophils Percent Auto 73.3 % (50-75); Platelet Count 194 X10^3/uL (150-400); Red Blood Cell Count 2.83 X10^6/uL (4.5-5.9); Red Cell Distribution Width 14.5 % (11.6-14.8); White Blood Cell Count 7.8 X10^3/uL (4.5-11.0)
[2022-01-03 11:34] LABS: BUN Creatinine Ratio 18.3 (6-22); Blood Urea Nitrogen 54 mg/dL (9-20); Calcium 9.4 mg/dL (8.4-10.2); Carbon Dioxide 24 mmol/L (22-32); Chloride 105 mmol/L (98-107); Estimated Glomerular Filt Rate 20 mL/min (>60); Glucose 120 mg/dL (80-110); HEMOLYSIS < 15 (0-50); Potassium 3.9 mmol/L (3.4-5.1); Sodium 139 mmol/L (137-145)
--- NOTE | 2022-01-03 11:58 | PT-IP ANOTE ---
Reviewed EMR and pt with troponin trending up from .094 to .107. NAC stated that pt just came up to the floor ~ 630. Talked with hospitalist regarding pt's increas troponin level and stated to hold PT eval for today and f/u tomorrow. stated that she will order another troponin reading. will f/u.
--- NOTE | 2022-01-03 15:37 | CM.DANOTE ---
Patient is an 86 yo male who was admitted on 01/03/22 for Weakness. Pt has MCR and [employer] for insurance and his PCP is Jody Ferrara. EMR was reviewed. Per MD, pt with hx of prostrate CA and admitted for UTI and metabolic encephalopathy and pt below baseline with weakness. PT ordered but on hold this morning, and will attempt later. SW met bedside with pt and explained role and pt confirms that he lives in [facility] at home alone and does not have any living local family. Pt is mostly independent with ADL's and still drives and uses a cane sometimes for ambulation. Pt has a pet cat that he takes care of daily. Pt states he just completed DPOA and Living Will pwk that is at home on his table and his best friend Gianluca Madrid who lives in [place] with his spouse are pt's DPOAs. Pt denies any hx of HH or SNF and is agreeable to HH if recommended. Pt states between his best friend Gianluca and his good local friend Shalonda, they plan to provide transport home at d/c. Pt states he is now considering getting a domestic housekeeper or a caregiver once a week for assist now that he has been feeling more ill and weak. Plan: SW to follow closely for PT eval and recommendations towards confirming safe d/c to home via friend POLiz and likely could benefit from HH pending PT eval. JULIET Hensley Discharge Planning/Care Management Advanced directive, confirm from CLINIC Start: 01/03/22 07:01 Freq: Q24H Status: Active Protocol: Document 01/03/22 08:00 BT (Rec: 01/03/22 08:16 BT [id number]) Advance Directive, confirm on record Time 08:16 Person contacted pt Copy received No CM Discharge Assessment Start: 01/03/22 15:35 Freq: Status: Active Protocol: Document 01/03/22 15:35 BF (Rec: 01/03/22 15:37 BF [id number]) Discharge Planning Assessment Assigned [employer] Grade Teacher JULIET Mckenzie DPOA/Assigned Designee Name friend Gianluca madrid Contact Information [phone] Advance Directives? Yes Advance Directives on File No History Provided By Patient,Medical Record Has Patient been admitted in last 30 No days? Prior Living Arrangements House Household Members none Type of transporation used prior to Drives own vehicle admit Independent with ADL's Yes Is patient alert and oriented? Yes: mostly, some memory issues Needs Assistance With Home Chores / Shopping Caregiver for Another No: has a cat at home DME Already Rented / Owned FWW / Walker Patient/Family Preference Home with Home Health Comment Pending PT eval and recommendations Barriers to Discharge No Discharge Plan Home with Home Health Transportation Arrangement Friend Gianluca Madrid plans to transport at d/c Additional Comment Likely HH but pending PT eval and recommendations Whiteboard Updated in Patient Room with Yes name and ext. # of [employer] Grade Teacher Review Status In Process Please Provide Date Initial DC 01/03/22 Assessment Was Performed Next Review Type Continued Stay Review
--- NOTE | 2022-01-03 19:07 | PM.PN.1 ---
Subjective Subjective Date Patient Seen: 01/03/22 Interval history: Hospitalist follow-up visit. Patient feeling much better. Is not confused. No fever chills. No nausea vomiting. No chest pain or palpitation. No shortness of breath wheezing or cough. No abdominal pain constipation or diarrhea. Able to move all extremities volitionally. No numbness or tingling in any extremity. Exam Vital Signs (past 8 hours): - 01/03/22 13:00 01/03/22 12:00 01/03/22 18:00 Temperature 97.7 F 98.1 F Pulse Rate 58 L 61 Respiratory Rate 17 20 Blood Pressure 127/49 L 130/54 L Pulse Oximetry 95 100 96 Oxygen Delivery Method Room Air Oxygen Flow Rate 0 0 0 Oxygen Delivery Method Room Air Oxygen Flow Rate 0 Objective Labs Result Diagrams: 01/03/22 11:09 01/03/22 11:09 Labs: Laboratory Results - last 24 hr 01/02/22 01/02/22 01/02/22 22:01 22:01 22:01 WBC 9.9 RBC 3.36 L Hgb 11.1 L Hct 33.6 L MCV 100.0 MCH 33.0 MCHC 33.0 RDW 14.5 Plt Count 224 Neut % (Auto) 80.9 H Lymph % (Auto) 12.1 L [place] % (Auto) 6.3 Eos % (Auto) 0.3 L Baso % (Auto) 0.4 Neut # (Auto) 8000 H Lymph # (Auto) 1200 [place] # (Auto) 600 Eos # (Auto) 0 Baso # (Auto) 0 Sodium 139 Potassium 4.5 Chloride 104 Carbon Dioxide 16 L BUN 58 H Creatinine 3.54 H Estimated GFR 16 L BUN/Creatinine Ratio 16.4 Glucose 131 H Lactate 5.5 H* Calcium 10.4 H Magnesium 2.1 Total Bilirubin 1.2 AST 43 ALT 22 Alkaline Phosphatase 74 Total Creatine Kinase 253 H CK-MB (CK-2) 3.86 H CK-MB (CK-2) Rel Index 1.5 Troponin I 0.094 H NT-Pro-B Natriuret Pep 4320 H Total Protein 8.9 H Albumin 4.8 Globulin 4.1 Albumin/Globulin Ratio 1.2 Lipase 154 Urine Color Urine Appearance Urine pH Ur Specific [place] Urine Protein Urine Glucose (UA) Urine Ketones Urine Occult Blood Urine Nitrate Urine Bilirubin Urine Urobilinogen Ur Leukocyte Esterase Urine RBC Urine WBC Ur Squamous Epith Cells Urine Bacteria Ur Culture Indicated? Ur Random Sodium Urine Creatinine SARS-CoV-2 (PCR) 01/02/22 01/03/22 01/03/22 22:40 00:21 02:10 WBC RBC Hgb Hct MCV MCH MCHC RDW Plt Count Neut % (Auto) Lymph % (Auto) [place] % (Auto) Eos % (Auto) Baso % (Auto) Neut # (Auto) Lymph # (Auto) [place] # (Auto) Eos # (Auto) Baso # (Auto) Sodium Potassium Chloride Carbon Dioxide BUN Creatinine Estimated GFR BUN/Creatinine Ratio Glucose Lactate 1.1 Calcium Magnesium Total Bilirubin AST ALT Alkaline Phosphatase Total Creatine Kinase CK-MB (CK-2) CK-MB (CK-2) Rel Index Troponin I NT-Pro-B Natriuret Pep Total Protein Albumin Globulin Albumin/Globulin Ratio Lipase Urine Color Urine Appearance Urine pH Ur Specific [place] Urine Protein Urine Glucose (UA) Urine Ketones Urine Occult Blood Urine Nitrate Urine Bilirubin Urine Urobilinogen Ur Leukocyte Esterase Urine RBC Urine WBC Ur Squamous Epith Cells Urine Bacteria Ur Culture Indicated? Ur Random Sodium 47 Urine Creatinine 96.9 SARS-CoV-2 (PCR) Negative 01/03/22 01/03/22 01/03/22 02:10 03:02 11:09 WBC 7.8 RBC 2.83 L Hgb 9.5 L Hct 27.7 L MCV 97.9 MCH 33.6 MCHC 34.4 RDW 14.5 Plt Count 194 Neut % (Auto) 73.3 Lymph % (Auto) 12.8 L [place] % (Auto) 12.9 Eos % (Auto) 0.6 L Baso % (Auto) 0.4 Neut # (Auto) 5700 Lymph # (Auto) 1000 L [place] # (Auto) 1000 H Eos # (Auto) 0 Baso # (Auto) 0 Sodium Potassium Chloride Carbon Dioxide BUN Creatinine 3.01 H Estimated GFR 20 L BUN/Creatinine Ratio Glucose Lactate Calcium Magnesium Total Bilirubin AST ALT Alkaline Phosphatase Total Creatine Kinase 412 H CK-MB (CK-2) 3.70 H CK-MB (CK-2) Rel Index 0.9 L Troponin I 0.107 H NT-Pro-B Natriuret Pep Total Protein Albumin Globulin Albumin/Globulin Ratio Lipase Urine Color Yellow Urine Appearance Sl cloudy Urine pH 5.0 Ur Specific [place] 1.020 Urine Protein 2+ H Urine Glucose (UA) Negative Urine Ketones Trace H Urine Occult Blood 3+ H Urine Nitrate Negative Urine Bilirubin Negative Urine Urobilinogen 0.2 Ur Leukocyte Esterase 2+ H Urine RBC 0-1/hpf Urine WBC 30-100/hpf H Ur Squamous Epith Cells 1-5 /hpf Urine Bacteria Moderate (10-30) H Ur Culture Indicated? Specimen cultured Ur Random Sodium Urine Creatinine SARS-CoV-2 (PCR) 01/03/22 11:09 WBC RBC Hgb Hct MCV MCH MCHC RDW Plt Count Neut % (Auto) Lymph % (Auto) [place] % (Auto) Eos % (Auto) Baso % (Auto) Neut # (Auto) Lymph # (Auto) [place] # (Auto) Eos # (Auto) Baso # (Auto) Sodium 139 Potassium 3.9 Chloride 105 Carbon Dioxide 24 BUN 54 H Creatinine 2.95 H Estimated GFR 20 L BUN/Creatinine Ratio 18.3 Glucose 120 H Lactate Calcium 9.4 Magnesium Total Bilirubin AST ALT Alkaline Phosphatase Total Creatine Kinase CK-MB (CK-2) CK-MB (CK-2) Rel Index Troponin I NT-Pro-B Natriuret Pep Total Protein Albumin Globulin Albumin/Globulin Ratio Lipase Urine Color Urine Appearance Urine pH Ur Specific [place] Urine Protein Urine Glucose (UA) Urine Ketones Urine Occult Blood Urine Nitrate Urine Bilirubin Urine Urobilinogen Ur Leukocyte Esterase Urine RBC Urine WBC Ur Squamous Epith Cells Urine Bacteria Ur Culture Indicated? Ur Random Sodium Urine Creatinine SARS-CoV-2 (PCR) [facility] History Anemia Bladder cancer Coronary stent patent Depression Erectile dysfunction 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 UTI -UA positive -cultures showed 2 different Gram-negative bacilli. Not identified at this time. -continue ceftriaxone 2. Acute metabolic encephalopathy -probably secondary to infection Increased today. CT of head has been normal 3. ELA on CKD stage 4 -recent creatinine has been 2.5-3 -most recent in-hospital 2.95 Continue to follow tomorrow 4. History of prostate cancer -s/p treatment -no evidence of urinary retention on imaging 5. CAD s/p stents with HTN -continue aspirin, statin, metoprolol While in the hospital the patient has had a dietitian assessment with which I am in agreement:? Patient has severe chronic protein calorie malnutrition, this impacts patient's response to infection treatment Patient continue to have inadequate improvement and requires continuous ongoing management. Remains to be in a patient Time Spent With Patient Critical Care time: I spent a total of [] minutes of critical care time on this patient's care today; this time is exclusive of procedural time. Quality VTE Deep Vein Thrombosis/Pulmonary Embolism Present on Admission: No
[2022-01-04] VITALS (9 sets, daily range): BP systolic 136–170; BP diastolic 50–73; PULSE 56–61; RESP 16–19; TEMP 36.2–37.2; O2SAT 93–99
[2022-01-04] MEDS: cefTRIAXone 1,000 MG in SODIUM CHLORIDE 0.9% 100 ML 200 MG IV (02:45)
[2022-01-04] MEDS: HEPARIN 5,000 UNIT/ML VIAL 5000 UNIT SUBCUT ×2 (09:20→20:05)
--- NOTE | 2022-01-04 10:20 | PT.IIE ---
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 Family history of prostate cancer High blood pressure History of malignant neoplasm of prostate History of primary bladder cancer History of UTI Membranous urethral stricture Prostate cancer Prostate cancer Radiation cystitis Urinary incontinence Urinary incontinence due to urethral sphincter incompetence UTI (urinary tract infection) Physical Therapy Inpatient Evaluation/Re-Eval M1 PT/OT-IP Prior Functional Status Start: 01/04/22 12:23 Freq: NEEDED Status: Active Protocol: Document 01/04/22 10:20 AB (Rec: 01/04/22 12:35 AB [email or web address]) Medical Review Prior Functional Status Medical History Reviewed Yes Communication able to make needs known; with confusion Mobility and Gait pt stated that he is modified independent with all mobilities and ambulation without AD indoors but uses SPC for outdoor mobility Social History Household Members none Living Arrangements House Number of Floors (Floors) Two Floors Number of Stairs To Enter/Railing? 8 steps B rails to enter 12 steps B rails to get to bedroom level Home Environment High Toilet,Tub/Shower Home Equipment Grab Bars In Shower M2 PT-IP Current Condition Start: 01/04/22 12:23 Freq: NEEDED Status: Active Protocol: Document 01/04/22 10:20 AB (Rec: 01/04/22 12:35 AB [email or web address]) Physical Therapy Current Condition Current Condition Evaluation Date 01/04/22 Treatment Diagnosis UTI; metabolic encephalopathy; difficulty in walking Onset Date 01/03/22 M3 PT-IP Subjective Start: 01/04/22 12:23 Freq: NEEDED Status: Active Protocol: Document 01/04/22 10:20 AB (Rec: 01/04/22 12:35 AB [email or web address]) Subjective Physical Therapy Visit Type Type Initial Evaluation Visit Start Time 10:20 Visit Stop Time 10:50 Total Visit Minutes 30 Number of FIRE CONTROL MECHANIC Visits 0 Physical Therapy Visit Comments Patient Comments agreeable to do PT; easily distracted M4 PT-IP Mobility and Gait Start: 06/30/22 12:23 Freq: NEEDED Status: Active Protocol: Document 01/04/22 10:20 AB (Rec: 01/04/22 12:35 AB [email or web address]) PT-Bed Mobility Assessment Supine to Sit Supine to Sit Standby Assistance Sit to Supine Sit to Supine Standby Assistance PT-Transfer Assessment Comments Mobility Comments BP in supine: 105/52 completed supine to sit SBA and cues. pt with confusion and requires constant cues. able to sit on EOB SBA. BP checked: 91/43 . pt with c/o slight dizziness. sat for 2 minutes and BP checked again: 89/45. pt stated that dizziness is stable and tolerate 2 more minutes of sitting. BP checked: 86/42. nurse informed . assisted pt back in bed. sit to supine SBA. positioned pt in bed. BP in supine: 130/ 50. call light and table placed within reach. PT-Balance Assessment Sitting Balance and Reactions Static Sitting Balance Ability Good Dynamic Sitting Balance Ability Fair M5 PT-IP Objective Assessments Start: 01/04/22 12:23 Freq: NEEDED Status: Active Protocol: Document 01/04/22 10:20 AB (Rec: 01/04/22 12:35 AB [email or web address]) Orientation Orientation/Cognition Level of Alertness Confusional State Orientation Name,Place,Situation Safety Awareness Decreased Safety Awareness Memory Description Short Term Impaired Gross Range of Motion Lower Extremity ROM Assessment Within Functional Limits Strength Lower Extremity Strength Hip 4-/5 Knee 4-/5 Sensation Assessment Sensation Gross Sensation WNL Muscle Tone Muscle Tone WNL Yes M6 PT-IP Treatment Start: 01/04/22 12:23 Freq: NEEDED Status: Active Protocol: Document 01/04/22 10:20 AB (Rec: 01/04/22 12:35 AB [email or web address]) Physical Therapy Treatment Education Education Provided Safety M7 PT-IP Assessment and Plan Start: 01/04/22 12:23 Freq: NEEDED Status: Active Protocol: Document 01/04/22 10:20 AB (Rec: 01/04/22 12:35 AB [email or web address]) PT Summary Assessment and Plan Potential Rehabilitation Potential Fair Status of Condition at Evaluation Evolving Summary Impairments Pain,ROM,Strength,Balance, Coordination,Sensation,Tone, Cognition,Bed Mobility, Transfers,Gait,Activity Tolerance Assessment Summary pt requiring SBA with bed mobility but unable to complete a transfer due to decrease in BP from 105/52 in supine to 86/42 in sitting position with c/o dizziness. will continue to assess progress. Pt lives alone and needs to be more independent to safely go home. Goals Bed Mobility Goal Independent Transfer Goal Standby Assistance,Front Wheeled Walker Gait Goal Standby Assistance,Front Wheel Walker Gait Distance 150 Other Goals improve transfers and ambulation using FWW/ SPC 200 ft mod I up/down 12 steps B rails SBA Days to Meet Goals 10 Frequency of Treatment Frequency Of Treatment Once a Day Treatment Plan Physical Therapy Treatment Plan Bed Mobility Training,Transfer Training,Gait Training, Therapeutic Exercise,Balance Retraining,Discharge Planning, Hot or Cold Pack,Neuromuscular Re-ed,Coordination Retraining Precautions Other Precautions BP Recommendations To Nursing Amount of Assist Needed PT/OT Assist Only Discharge Recommendations PT Discharge Recommendations Home with 28/01 Assist Available,Home Health,SNF Rehab,Home vs SNF Equipment Needed for Home Before FWW if not safe with SPC Discharge Transportation Needs at Discharge Private Vehicle,Wheelchair/ Cabulance
--- NOTE | 2022-01-04 12:37 | DIET.CONS ---
Dietary Consultation Note Admission Date: 01/03/2022 05:13 Assessment: 86y M admitted for weakness referred to nutrition for low BMI and MNA 7 (malnourished). 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 Pt lives alone with little help in the home environment. Pt does all own cooking and home chores, walks to grocery store. Pts POs this hospitalization have been consistently 100% of meal trays indicating he could use some help to support his nutrition in the home environment. Ht: 187.96 cm Wt: 66.224 kg BMI: 18.7 UBW: 70kg (2019) MNA: 7 Boyd Score: 18 Diet: 01/03/22 Breakfast Heart Healthy Diet Diet Modifications: Nutrition Percent Meal Consumed 100% 01/03/22 18:00 Percent Meal Consumed 100% 01/03/22 13:15 Percent Meal Consumed 100% 01/03/22 09:00 Labs: RBC 2.83 X10^6/uL (4.5-5.9) L 01/03/22 11:09 Hgb 9.5 g/dL (13.5-17.5) L 01/03/22 11:09 Hct 27.7 % (41-53) L 01/03/22 11:09 Creatinine 2.95 mg/dL (0.66-1.25) H 01/03/22 11:09 Lactate 1.1 mmol/L (0.7-2.1) 01/03/22 00:21 NT-Pro-B Natriuret Pep 4320 pg/mL (<450) H 01/02/22 22:01 Nutrition Diagnosis: Severe Chronic Protein Calorie Malnutrition r/t inadequate oral intake and progression of chronic kidney disease aeb pt with BMI 18.7 (severe for age), MNA 7 (malnourished), pt renal fxn worsened over past 2y from CKD3 to CKD4, visual inspection positive for moderate muscle wasting and severe fat wasting, hospitalized for weakness. Interventions: 1. Recc pt receive help at home with shopping and meal prep to support renal health and nutrition status. 2. Recc ONS Nepro bid while hospitalized to support nutrition status. Monitoring/Evaluations: POs, ONS tolerance Electronically Signed by: Bing Ramos 01/04/22 12:37 Clinical Dietitian [address] [id number]
[2022-01-04] MEDS: SODIUM CHLORIDE 0.9% 250 ML IV (12:46)
--- NOTE | 2022-01-04 15:38 | CM.DPC ---
DCP Note: Met with patient in his room. He is a little fuzzy with answers to questions but able to answer with volition. Friend Shalonda Rodrigues called this morning ([phone]), she feeds his cat and reports that his house is a mess and needs cleaning, she also reports that he has stairs to his bedroom and is concerned of his abilities. Informed Althea that since she is not his POA that I can only pass on to him what she said but cannot share information. She has also called patient. She states she will be visiting him with a cnc lathe programmer on Saturday to assist him. Endorsed what DENISE Mckenzie stated yesterday that he consider getting a customer complaint service supervisor and caregiver if he is to return home living alone as he has been. According to Madiha's note, friend Gianluca Madrid and spouse are his DPOAs. PT worked with patient but he became hypotensive with standing. He uses a FWW with SBA but is in a weakened state. Per PT Home w/ HH vs SNF Rehab, w/c/cabulance transport. P: Assess 01/05 activity level and LOC assessment. Possibly SNF placement, contact SNFs. Patient is agreeable to HH. Francesca Parnell RN/DCP
[2022-01-05] VITALS (12 sets, daily range): BP systolic 139–179; BP diastolic 53–97; PULSE 52–62; RESP 16–20; TEMP 36.7–37.2; O2SAT 97–100
[2022-01-05] MEDS: cefTRIAXone 1,000 MG in SODIUM CHLORIDE 0.9% 100 ML 200 MG IV (03:24)
[2022-01-05 05:59] LABS: Add Manual Diff / Slide Review NO; Basophils Absolute Auto 0 /uL (0-100); Basophils Percent Auto 0.6 % (0-2); Eosinophils Absolute Auto 200 /uL (0-450); Eosinophils Percent Auto 2.7 % (2-4); Hematocrit 28.6 % (41-53); Hemoglobin 9.7 g/dL (13.5-17.5); Lymphocytes Absolute Auto 1100 /uL (1100-4500); Lymphocytes Percent Auto 16.4 % (25-40); Mean Corpuscular Hemoglobin 33.5 PG (26-34); Mean Corpuscular Volume 98.5 fL (80-100); Monocytes Absolute Auto 900 /uL (0-900); Monocytes Percent Auto 13.6 % (3-14); Neutrophils Absolute Auto 4400 /uL (1500-7000); Neutrophils Percent Auto 66.7 % (50-75); Platelet Count 195 X10^3/uL (150-400); Red Cell Distribution Width 14.6 % (11.6-14.8); White Blood Cell Count 6.5 X10^3/uL (4.5-11.0)
[2022-01-05 06:20] LABS: Alanine Aminotransferase 17 IU/L (<50); Albumin 3.8 g/dL (3.5-5.0); Albumin Globulin Ratio 1.1 (1.0-2.8); Alkaline Phosphatase 74 U/L (38-126); Aspartate Aminotransferase 41 IU/L (17-59); BUN Creatinine Ratio 24.1 (6-22); Bilirubin Total 0.5 mg/dL (0.2-1.3); Blood Urea Nitrogen 53 mg/dL (9-20); C-Reactive Protein Quant 1.7 mg/dL (<1.0); Calcium 9.2 mg/dL (8.4-10.2); Carbon Dioxide 27 mmol/L (22-32); Chloride 108 mmol/L (98-107); Creatine Kinase 256 U/L (55-170); Estimated Glomerular Filt Rate 28 mL/min (>60); Globulin 3.5 g/dL (1.7-4.1); Glucose 91 mg/dL (80-110); HEMOLYSIS < 15 (0-50); Potassium 4.2 mmol/L (3.4-5.1); Sodium 140 mmol/L (137-145); Total Protein 7.3 g/dL (6.3-8.2)
[2022-01-05 06:30] LABS: Troponin I 0.062 ng/mL (0.01-0.034)
[2022-01-05] MEDS: AMLODIPINE 5 MG TABLET PO (08:30)
[2022-01-05] MEDS: lisinopriL 5 MG TABLET PO (08:30)
[2022-01-05] MEDS: HEPARIN 5,000 UNIT/ML VIAL 5000 UNIT SUBCUT ×2 (08:30→21:15)
[2022-01-05 08:40] LABS: CKMB % Relative Index 0.7 % (1.5-5.0); Creatine Kinase MB 1.81 ng/mL (<2.37)
--- NOTE | 2022-01-05 11:02 | CM.DPC ---
Addendum entered by Ariana Erickson R.N. 01/05/22 15:41: December confirmed acceptance for tomorrow, she is aware that friend, Gianluca, was left a message. Updated Re at [facility], so she is aware. Addendum entered by Ariana Erickson R.N. 01/05/22 15:33: Re from [facility] indicated, they can take patient tomorrow, but do not have transportation. Nurse, Kendrick, stated, patient is weak, may be difficult for him to sit up, may need ambulance transport. Mentioned this to patient, regarding [facility], and possible transport and could be out of pocket expense. Patient 'hoping to be here in town if possible, since his friend, Gianluca, lives here. Nila at [facility] is willing to take patient if his friend Gianluca would consider being POA, for they have a notary there and paper work that can be completed. Per patient's permission, called friend, Gianluca. Left him a message and asked him to call this DC Margin Trimmer. Plan at this time is either [facility], or [facility]. According to nursing, patient was having some blood pressure issues today. Did complete PASSR. Original Note: DCP Cont: Was told that patient is stand by assist, with P.T. Patient does reside alone in [place]. Has a friend named Gianluca Madrid, is not POA, but involved with patient. He and his spouse live in [place]. Asked patient if he would consider going to a rehab facility to get stronger before going home, and he has consented to go if needed. He has no preferences upon alf facilities. Patient gave permission to call his friend, Gianluca Madrid with any additional questions. Did speak to Gianluca. He confirmed that patient does live alone, is willing to help him out as needed. He is aware that patient may need skilled rehab before returning [facility]. Called Nila at [facility] and gave her information on patient, letting her know that he is Medicare, and inpatient. She will review. Also, will have Diane send referrals to both [facility], and [facility]. P: DCP to work on getting patient into skilled rehab before going home. Ariana Erickson RN/[employer]
--- NOTE | 2022-01-05 11:06 | PT.IPTN ---
Current Diagnoses Urinary tract infection, site not specified (01/03/22) Physical Therapy Treatment Note M2 PT-IP Current Condition Start: 01/04/22 12:23 Freq: NEEDED Status: Active Protocol: Document 01/04/22 10:20 AB (Rec: 01/04/22 12:35 AB [id number]) Physical Therapy Current Condition Current Condition Evaluation Date 01/04/22 Treatment Diagnosis UTI; metabolic encephalopathy; difficulty in walking Onset Date 01/03/22 M3 PT-IP Subjective Start: 01/04/22 12:23 Freq: NEEDED Status: Active Protocol: Document 01/05/22 10:42 KS (Rec: 01/05/22 12:08 KS [id number]) Subjective Physical Therapy Visit Type Type Treatment Note Visit Start Time 10:42 Visit Stop Time 11:06 Total Visit Minutes 24 Number of CABLE MAKER Visits 1 Physical Therapy Visit Comments Patient Comments agreeable to do PT; easily distracted M4 PT-IP Mobility and Gait Start: 01/04/22 12:23 Freq: NEEDED Status: Active Protocol: Document 01/05/22 10:42 KS (Rec: 01/05/22 12:08 KS [id number]) PT-Bed Mobility Assessment Supine to Sit Supine to Sit Standby Assistance Sit to Supine Sit to Supine Standby Assistance PT-Transfer Assessment Sit to and From Stand Sit to and from Stand Minimal Assistance,1 Person Assistance,Use of Upper Extremities Equipment Transfer Assistive Device Gait Belt,Front Wheeled Walker Transfers Transfer Destination Bed Transfer Technique Lateral Scoot Transfer Ability Level of Assist Minimal Assistance,1 Person Assistance,Use of Upper Extremities Comments Mobility Comments Pt in bed upon arrival and reporting fatigue but agreeable to working w/ therapy. BP: 110/50 in supine. Pt sup<>sit and scooted EOB SBA. Upon sitting, pt reported slight dizziness, BP 102/45. Pt agreeable to stand. Min A and mod cues for hand placement for sit<>stand w/ FWW. Pt reported severe dizziness and seemed confused. He was unable to tolerate standing for BP reading. Able to scoot laterally towards HOB . SBA for sit<>sup and BP: 108 /42. Pt left in bed w/ all needs in reach and dizziness subsided following laying down . Gait Assessment Comments Gait Comments Unable d/t dizziness PT-Balance Assessment Sitting Balance and Reactions Static Sitting Balance Ability Good Dynamic Sitting Balance Ability Fair M5 PT-IP Objective Assessments Start: 01/04/22 12:23 Freq: NEEDED Status: Active Protocol: Document 01/04/22 10:20 AB (Rec: 01/04/22 12:35 AB [id number]) Orientation Orientation/Cognition Level of Alertness Confusional State Orientation Name,Place,Situation Safety Awareness Decreased Safety Awareness Memory Description Short Term Impaired Gross Range of Motion Lower Extremity ROM Assessment Within Functional Limits Strength Lower Extremity Strength Hip 4-/5 Knee 4-/5 Sensation Assessment Sensation Gross Sensation WNL Muscle Tone Muscle Tone WNL Yes M6 PT-IP Treatment Start: 01/04/22 12:23 Freq: NEEDED Status: Active Protocol: Document 01/05/22 10:42 KS (Rec: 01/05/22 12:08 KS [id number]) Physical Therapy Treatment Exercises Exercises Ankle Pumps,Gluteal Sets,Quad Sets Education Education Provided Safety M7 PT-IP Assessment and Plan Start: 01/04/22 12:23 Freq: NEEDED Status: Active Protocol: Document 01/05/22 10:42 KS (Rec: 01/05/22 12:08 KS [id number]) PT Summary Assessment and Plan Potential Rehabilitation Potential Fair Status of Condition at Evaluation Evolving Summary Impairments Pain,ROM,Strength,Balance, Coordination,Sensation,Tone, Cognition,Bed Mobility, Transfers,Gait,Activity Tolerance Assessment Summary Pt continues to be limited by symptomatic low BP w/ positional changes. He reported intense dizziness upon standing and was unable to tolerate standing for BP reading. SBA for bed mobility, Min A and mod cues for sit<> Stand w/ FWW. Will continue to progress as appropriate, however at this time pt may benefit from SNF to improve functional mobility independence and activity tolerance. Goals Bed Mobility Goal Independent Transfer Goal Standby Assistance,Front Wheeled Walker Gait Goal Standby Assistance,Front Wheel Walker Gait Distance 150 Other Goals improve transfers and ambulation using FWW/ SPC 200 ft mod I up/down 12 steps B rails SBA Days to Meet Goals 10 Frequency of Treatment Frequency Of Treatment Once a Day Treatment Plan Physical Therapy Treatment Plan Bed Mobility Training,Transfer Training,Gait Training, Therapeutic Exercise,Balance Retraining,Discharge Planning, Hot or Cold Pack,Neuromuscular Re-ed,Coordination Retraining Precautions Other Precautions BP Recommendations To Nursing Amount of Assist Needed PT/OT Assist Only Discharge Recommendations PT Discharge Recommendations Home with 28/01 Assist Available,Home Health,SNF Rehab Equipment Needed for Home Before FWW if not safe with SPC Discharge Transportation Needs at Discharge Private Vehicle,Wheelchair/ Cabulance
[2022-01-05] MEDS: SODIUM CHLORIDE 0.9% 1,000 ML 1000 ML IV (11:18)
--- NOTE | 2022-01-05 12:00 | CM.DPNOTE ---
Faxed referral to [facility] and emailed [facility] & [facility]. Diane Tan CM Assist.
[2022-01-05] MEDS: levoFLOXacin 500 MG/100 ML PIGGYBACK 100 MG IV (16:03)
--- NOTE | 2022-01-05 16:45 | P.PN_ITS ---
Subjective Subjective Date Patient Seen: 01/05/22 Time Patient Seen: 08:00 Interval history: Today he is slightly confused, but appears improved from when I saw him. He is quite weak. He stood to work with PT and became very orthostatic. Exam Vital Signs (past 8 hours): - 01/05/22 09:02 01/05/22 10:00 01/05/22 12:00 Temperature 98.2 F 98.1 F Pulse Rate 61 54 L Pulse Rate [Orthostatic Lying] Pulse Rate [Orthostatic Sitting] Pulse Rate [Orthostatic Standing] Respiratory Rate 20 18 Blood Pressure 170/74 H 159/97 H Blood Pressure [Orthostatic Lying] Blood Pressure [Orthostatic Sitting] Blood Pressure [Orthostatic Standing] Pulse Oximetry 99 98 98 Oxygen Delivery Method Room Air Oxygen Flow Rate 0 0 01/05/22 14:54 01/05/22 15:00 Temperature Pulse Rate Pulse Rate [Orthostatic Lying] 53 L Pulse Rate [Orthostatic Sitting] 59 L Pulse Rate [Orthostatic Standing] 58 L Respiratory Rate Blood Pressure Blood Pressure [Orthostatic Lying] 170/62 H Blood Pressure [Orthostatic Sitting] 169/53 H Blood Pressure [Orthostatic Standing] 141/61 H Pulse Oximetry 99 Oxygen Delivery Method Room Air Oxygen Flow Rate Oxygen Delivery Method Room Air Oxygen Flow Rate 0 Narrative Exam Narrative: GEN: no acute distress CV: regular rate and rhythm, no murmurs PULM: clear bilaterally, no wheezes, rhonchi rales ABD: soft, nontender, nondistended, no organomegaly EXT: warm and well perfused with no edema NEURO: awake, alert, oriented no focal deficits Objective Labs Result Diagrams: 01/05/22 05:07 01/05/22 05:07 Labs: Laboratory Results - last 24 hr 01/05/22 01/05/22 05:07 05:07 WBC 6.5 RBC 2.90 L Hgb 9.7 L Hct 28.6 L MCV 98.5 MCH 33.5 MCHC 34.0 RDW 14.6 Plt Count 195 Neut % (Auto) 66.7 Lymph % (Auto) 16.4 L [place] % (Auto) 13.6 Eos % (Auto) 2.7 Baso % (Auto) 0.6 Neut # (Auto) 4400 Lymph # (Auto) 1100 [place] # (Auto) 900 Eos # (Auto) 200 Baso # (Auto) 0 Sodium 140 Potassium 4.2 Chloride 108 H Carbon Dioxide 27 BUN 53 H Creatinine 2.20 H Estimated GFR 28 L BUN/Creatinine Ratio 24.1 H Glucose 91 Calcium 9.2 Total Bilirubin 0.5 AST 41 ALT 17 Alkaline Phosphatase 74 Total Creatine Kinase 256 H CK-MB (CK-2) 1.81 CK-MB (CK-2) Rel Index 0.7 L Troponin I 0.062 H C-Reactive Protein 1.7 H Total Protein 7.3 Albumin 3.8 Globulin 3.5 Albumin/Globulin Ratio 1.1 PFSH Medical History Anemia Bladder cancer Coronary stent patent Depression Erectile dysfunction 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 UTI -UA positive -cultures showed enterobacter and e. coli sensitive to levofloxacin -plan for 5 day course 2. Acute metabolic encephalopathy -probably secondary to infection -CT of head has been normal 3. ELA on CKD stage 4 -recent creatinine has been 2.5-3 -most recent in-hospital 2.95 -now improved 2.2 4. History of prostate cancer -s/p treatment -no evidence of urinary retention on imaging 5. CAD s/p stents with HTN -continue aspirin, statin, metoprolol -cardiac demand ischemia likely secondary to ELA and infection, troponin improving While in the hospital the patient has had a dietitian assessment with which I am in agreement:? Patient has severe chronic protein calorie malnutrition, this impacts patient's response to infection treatment Patient continue to have inadequate improvement and requires continuous ongoing management. Remains to be in a patient Time Spent With Patient Critical Care time: I spent a total of [] minutes of critical care time on this patient's care today; this time is exclusive of procedural time. Quality VTE Deep Vein Thrombosis/Pulmonary Embolism Present on Admission: No
[2022-01-05] MEDS: SODIUM CHLORIDE 0.9% FLUSH 10 ML IV (19:40)
[2022-01-06 01:37] VITALS: BP 125/60; BP 157/71; BP 84/48; PULSE 58; PULSE 69; PULSE 73; RESP 19; TEMP 37.3; O2SAT 98
[2022-01-06 03:00] VITALS: O2SAT 98
[2022-01-06 05:38] LABS: Hematocrit 27.6 % (41-53); Hemoglobin 9.2 g/dL (13.5-17.5); Mean Corpuscular HGB Conc 33.3 % (30-36); Mean Corpuscular Hemoglobin 33.2 PG (26-34); Mean Corpuscular Volume 99.6 fL (80-100); Platelet Count 178 X10^3/uL (150-400); Red Blood Cell Count 2.77 X10^6/uL (4.5-5.9); Red Cell Distribution Width 14.3 % (11.6-14.8); White Blood Cell Count 6.3 X10^3/uL (4.5-11.0)
[2022-01-06 05:47] LABS: BUN Creatinine Ratio 23.8 (6-22); Blood Urea Nitrogen 48 mg/dL (9-20); Calcium 9.1 mg/dL (8.4-10.2); Carbon Dioxide 21 mmol/L (22-32); Chloride 110 mmol/L (98-107); Estimated Glomerular Filt Rate 32 mL/min (>60); Glucose 87 mg/dL (80-110); HEMOLYSIS < 15 (0-50); Potassium 4.5 mmol/L (3.4-5.1); Sodium 139 mmol/L (137-145)
[2022-01-06 06:10] VITALS: BP 187/75; PULSE 53; RESP 18; TEMP 36.9; O2SAT 98
[2022-01-06] MEDS: SODIUM CHLORIDE 0.9% 1,000 ML 1000 ML IV (07:25)
[2022-01-06] MEDS: HEPARIN 5,000 UNIT/ML VIAL 5000 UNIT SUBCUT (08:36)
[2022-01-06] MEDS: SODIUM CHLORIDE 0.9% FLUSH 10 ML IV (08:36)
[2022-01-06 09:30] LABS: COVID19 -Nasal RAPID Negative (Negative)
[2022-01-06 09:44] VITALS: BP 115/43; BP 133/51; BP 96/45; PULSE 47; PULSE 61; PULSE 63
--- NOTE | 2022-01-06 10:58 | PM.DS.1 ---
History of Present Illness History of Present Illness Chief complaint: Weakness Narrative: Mr. Sheridan is an 86M with PMH CAD, hx prostate cancer, CKD stage 3-4, HTN who presents with weakness. He has been weak the last few days. He lives alone and has difficulty taking care of himself recently. He is quite confused. He says he had falls. No fevers, chills. No dysuria. No nausea, vomiting, diarrhea. In the ED workup was done, vitals notable for high blood pressure. Labs notable for WBC 9.9, hgb 11.1, plts 224. Na 139, co2 16, BUN 58, creatinine 3.54. Lactate 5.5 resolved after IV fluid bolus. Troponin 0.094. BNP 4320. He was given IV fluids, lasix, and ceftriaxone, and admitted for further treatment. Family history: patient asked but is encephalopathic and unable to verify Discharge Providers Provider Date of admission: 01/03/22 05:13 Discharge Date: 01/06/22 Primary care physician: Jody Ferrara PA-C Consults: 01/03/22 06:45 Consult to Physical Therapy Evaluate & Treat Comment: Physician Instructions: Evaluate and Treat Discharge provider: William Loredo MD Summary Hospital Course Discharge Diagnosis: 1. UTI 2. Acute metabolic encephalopathy 3. ELA on CKD stage 3 4. History of prostate cancer 5. CAD s/p stents 6. HTN Hospital Course: Mr. Sheridan was admitted with confusion. He was found to have acute kidney injury. He improved with antibiotics and IV fluids. He had orthostatic hypotension which improved with IV fluids. His creatinine returned back to normal. He had a UTI and was started on antibiotics and improved. He should continue antibiotics for a total of 7 days, which will be 4 more days of levofloxacin. He is discharged to SNF for PT. Exam Vital Signs (past 8 hours): - 01/06/22 03:00 01/06/22 06:10 01/06/22 09:44 Temperature 98.4 F Pulse Rate 53 L Pulse Rate [Orthostatic Lying] 61 Pulse Rate [Orthostatic Sitting] 63 Pulse Rate [Orthostatic Standing] 47 L Respiratory Rate 18 Blood Pressure 187/75 H Blood Pressure [Orthostatic Lying] 133/51 L Blood Pressure [Orthostatic Sitting] 115/43 L Blood Pressure [Orthostatic Standing] 96/45 L Pulse Oximetry 98 98 Oxygen Delivery Method Room Air 01/06/22 08:42 Temperature Pulse Rate Pulse Rate [Orthostatic Lying] Pulse Rate [Orthostatic Sitting] Pulse Rate [Orthostatic Standing] Respiratory Rate Blood Pressure Blood Pressure [Orthostatic Lying] Blood Pressure [Orthostatic Sitting] Blood Pressure [Orthostatic Standing] Pulse Oximetry Oxygen Delivery Method Room Air Oxygen Delivery Method Room Air Oxygen Flow Rate 0 Narrative Exam Narrative: GEN: no acute distress CV: regular rate and rhythm, no murmurs PULM: clear bilaterally, no wheezes, rhonchi rales ABD: soft, nontender, nondistended, no organomegaly EXT: warm and well perfused with no edema NEURO: awake, alert, less confused than yesterday Objective Labs Result Diagrams: 01/06/22 05:19 01/06/22 05:19 Labs: Laboratory Results - last 24 hr 01/06/22 01/06/22 01/06/22 05:19 05:19 09:15 WBC 6.3 RBC 2.77 L Hgb 9.2 L Hct 27.6 L MCV 99.6 MCH 33.2 MCHC 33.3 RDW 14.3 Plt Count 178 Sodium 139 Potassium 4.5 Chloride 110 H Carbon Dioxide 21 L BUN 48 H Creatinine 2.02 H Estimated GFR 32 L BUN/Creatinine Ratio 23.8 H Glucose 87 Calcium 9.1 SARS-CoV-2 (PCR) Negative [facility] Medical History Anemia Bladder cancer Coronary stent patent Depression Erectile dysfunction 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 Sheridan was admitted with confusion and was found to have a UTI. He improved with antibiotics. He was discharged to SNF for PT. Discharge orders & Medications Prescriptions: New acetaminophen 325 mg Tablet 650 mg PO Q6HR PRN (Reason: Fever/Mild Pain (1-3)) Qty: 30 0RF levofloxacin 500 mg tablet 500 mg PO DAILY Qty: 4 0RF Continued metoprolol 25 mg 0.5 tab PO BID atorvastatin 40 mg tablet 40 mg PO DAILY aspirin [Adult Aspirin Regimen] 81 mg tablet,delayed release (DR/EC) 81 mg PO DAILY ferrous sulfate [FeroSul] 325 mg (65 mg iron) tablet 325 tab PO TID Label Comments: TAKE 1 TABLET BY MOUTH THREE TIMES DAILY WITH MEALS ascorbic acid (vitamin C) 1,000 mg tablet 1,000 mg PO DAILY Follow up/Referrals: Jody Ferrara PA-C [Primary Care Provider] - Diet/Activity/Treatments Diet: Regular Liquid consistency: Normal/Thin Food texture: Regular [facility] Rehab type: Physical therapy and Occupational therapy Discharge Data Primary Care Provider: Jody Ferrara Quality VTE Deep Vein Thrombosis/Pulmonary Embolism Present on Admission: No
[2022-01-06 11:06] VITALS: BP 148/61; PULSE 60; RESP 17; TEMP 36.8; O2SAT 98
--- NOTE | 2022-01-06 11:58 | CM.DPC ---
DCP Cont: Patient is to be going to [facility] today. Have spoken to Re in admissions. She plans on pickling machine operator at 11:30. Have updated nurse, Deirdre, and Dr. Loredo. Patient has been updated. Placed stat COVID swab. Faxed orders to [facility], including med sheets, PASSR, and DC Summary. COVID results came in and were faxed. Gave nurse report number. P: Patient is discharged to [facility]. Ariana Erickson RN/Civil Engineer
== END 2022-01-06 11:35 | DRG 689 ==
LOC: ED 22:01 → AC 01-03 05:29
PROVIDERS: Neuromusculoskeletal Medicine, Sports Medicine; Admitting Provider Internal Medicine; Emergency Provider Emergency Medicine; PCP Physician Assistant; Visit Provider Internal Medicine
DX: N39.0 Urinary tract infection, site not specified (principal); G93.41 Metabolic encephalopathy; E43 Unspecified severe protein-calorie malnutrition; N18.4 Chronic kidney disease, stage 4 (severe); N17.9 Acute kidney failure, unspecified; Z68.1 Body mass index [BMI] 19.9 or less, adult; I25.10 Atherosclerotic heart disease of native coronary artery without angina pectoris; I12.9 Hypertensive chronic kidney disease with stage 1 through stage 4 chronic kidney disease, or unspecified chronic kidney disease; D64.9 Anemia, unspecified; E78.5 Hyperlipidemia, unspecified; Z20.822 Contact with and (suspected) exposure to COVID-19; Z98.61 Coronary angioplasty status; Z87.891 Personal history of nicotine dependence
CPT/HCPCS: 36415; 70450; 71045; 71250; 74176; 80048; 80053; 81001; 82550; 82553; 82565; 82570; 83605; 83690; 83735; 83880; 84300; 84484; 85025; 85027; 86140; 87040; 87077; 87086; 87186; 87635; 93005; 93010; 96365; 96375; 97162; 97530; 99285; C9803; J0696; J1644; J1940; J1956